=== PATIENT | female | born 1960 | race Caucasian/White ===

== ENCOUNTER 2020-05-04 05:12 | Observation (INO) | payer MEDICAID ==
[2020-05-04] MEDS ORDERED: BABY ASPIRIN 81 MG CHEW PO ONE (05:37)
[2020-05-04 06:18] LABS: Absolute Neutrophil Ct (ANC) 3.64 (1.4-6.9); BASOPHIL % 0.6 % (0.0-0.4); Basophil (Absolute #) 0.04 (0-0.4); Eosinophil % 1.7 % (0.00-5.0); Eosinophil (Absolute #) 0.11 (0-0.5); Hematocrit 28.1 % (35-47); Lymphocytes % 33.4 % (24.0-44.0); Mean Cell Volume 79.2 fl (78-100); Mean Corpuscular Hemoglobin 22.5 pg (26-32); Mean Corpuscular Hgb Concent. 28.5 g/dl (32-36); Monocytes % 6.4 % (0.0-12.0); Neutrophil % 57.9 % (36.0-66.0); Platelet Count 158 K/mm3 (150-450); Red Blood Count 3.55 M/mm3 (4.1-5.4); Red Cell Distribution Width 20.3 % (11.5-14.0); White Blood Count 6.3 K/mm3 (4.0-10.5)
[2020-05-04 06:32] LABS: ALBUMIN 4.1 g/dL (3.5-5.0); ALKALINE PHOSPHATASE 144 U/L (38-126); ANION GAP 13.1 MEQ/L (5-15); BLOOD UREA NITROGEN 15 mg/dL (7-17); CHLORIDE 105 mmol/L (98-107); Calcium 8.8 mg/dL (8.4-10.2); Carbon Dioxide 23 mmol/L (22-30); Creatinine 1 0.84 mg/dL (0.52-1.04); EST GLOMERULAR FILTRATION RATE > 60.0 ML/MIN; Glucose 130 mg/dL (74-106); MAGNESIUM 2.1 mg/dL (1.6-2.3); Potassium 3.5 mmol/L (3.5-5.1); SGOT/AST 81 U/L (14-36); SGPT/ALT 41 U/L (0-35); SODIUM 137 mmol/L (137-145); Total Protein 7.3 g/dL (6.3-8.2)
[2020-05-04] MEDS ORDERED: MORPHINE SULFATE 4 MG INJ IV ONE (06:34)
[2020-05-04] MEDS ORDERED: MORPHINE SULFATE 4 MG INJ ONE (06:36)
[2020-05-04 06:40] LABS: INFLUENZA A NEGATIVE (NEGATIVE); INFLUENZA B NEGATIVE (NEGATIVE); RESPIRATORY SYNCTIAL VIRUS NEGATIVE (Negative)
--- NOTE | 2020-05-04 06:45 | ERPHSYRPT ---
- History of Present Illness Source: patient, EMS Exam Limitations: no limitations Patient Subjective Stated Complaint: "My chest hurts and I can't breathe." Triage Nursing Assessment: Pt presented alert et oriented x3 answering questions appropriately. Pt presented in obvious distress of breathing with noted 4 words dyspnea. pt reported recently finishing chemotherapy for lung cancer. Pt reported right sided chest pain x4 days with acute increase in pain this morning. Pt denied headache, dizziness, visual/auditory changes. Neck supple non-tender without lymphadenopathy. Symmetrical chest expansion. heart tones regular/clear S2 S2. Lungs with restricted airflow throughout and diffuse fine crackles in the bilateral bases. Abdomen obese non-tender with bowel sounds present in all quadrants. Timing/Duration: day(s) (4), gradual onset, worse Activities at Onset: rest Severity of Dyspnea-Max: severe Severity of Dyspnea-Current: moderate Modifying Factors: Improves With: albuterol nebulizer, coughing, deep breath, oxygen Associated Symptoms: cough, chest pain/discomfort, fever, wheezing, heaviness, productive cough Hx Tetanus, Diphtheria Vaccination/Date Given: Yes Hx Influenza Vaccination/Date Given: Yes Hx Pneumococcal Vaccination/Date Given: Yes <GLADYS KEYES - Last Filed: 05/04/20 07:12> <HARRIETT FENTON - Last Filed: 05/04/20 08:17> - History of Present Illness Time Seen by Provider: 05/04/20 05:16 Physician History: 60 years old female with history of hypertension, hyperlipidemia, lung cancer currently on chemotherapy presented in the ER with chief complaint of increasing shortness of breath and cough productive of yellow-green sputum, moderate in amount associated with fever off and on for the last 3 days with a T-max of 103. Patient has taken Tylenol lost night and currently afebrile. Complaining of generalized chest soreness more pain in the right lower chest especially with deep breathing. She is given DuoNeb and Solu-Medrol by EMS in route to ER and is feeling better now but still have dyspnea. (GLADYS KEYES) Allergies/Adverse Reactions: No Known Drug Allergies Allergy (Unverified 05/04/20 05:14) Home Medications: Budesonide/Formoterol Fumarate [Budesonide-Formoterol 80-4.5] 2 puff PO BID 05/04/20 [History] Gabapentin 1 cap PO TID 05/04/20 [History] Metoprolol Succinate 1 tab PO DAILY 05/04/20 [History] Omeprazole 1 cap PO DAILY 05/04/20 [History] Venlafaxine HCl ER 75 mg [Effexor XR 75 MG] 3 cap PO DAILY 05/04/20 [History] Travel Risk - International Travel Have you traveled outside of the country in past 3 weeks: No - Coronavirus Screening Are you exhibiting any of the following symptoms?: Yes Symptoms: Cough: New Onset, Shortness of Breath Close contact with a COVID-19 positive Pt in past 14-21 Days: No <GLADYS KEYES - Last Filed: 05/04/20 07:12> - Review of Systems Constitutional: Fever, Chills, Fatigue, Weakness Eyes: No Symptoms Ears, Nose, & Throat: No Symptoms Respiratory: Cough, Dyspnea, Dyspnea on Exertion (GAMA), Wheezing Cardiac: Chest Pain Abdominal/Gastrointestinal: Nausea Genitourinary Symptoms: Urinary Retention Musculoskeletal: Myalgias Skin: No Symptoms Neurological: No Symptoms Psychological: No Symptoms Endocrine: No Symptoms Hematologic/Lymphatic: No Symptoms Immunological/Allergic: No Symptoms <GLADYS KEYES - Last Filed: 05/04/20 07:12> - Past Medical History Pertinent Past Medical History: Yes Neurological History: Migraines, Seizures ENT History: No Pertinent History Cardiac History: High Cholesterol, Hypertension, Myocardial Infarction ([place]) Respiratory History: Asthma, COPD, Lung Cancer Endocrine Medical History: Diabetes Type I Musculoskeletal History: No Pertinent History GI Medical History: GERD History: Renal Disease Psycho-Social History: Depression Female Reproductive Disorders: Breast Cancer, Uterine Cancer - Past Surgical History Past Surgical History: Yes Neuro Surgical History: No Pertinent History Cardiac: Cardiac Catheterization Respiratory: No Pertinent History Gastrointestinal: Cholecystectomy Genitourinary: No Pertinent History Musculoskeletal: No Pertinent History Female Surgical History: Hysterectomy - Social History Smoking Status: Current some day smoker Exposure to second hand smoke: Yes Drug Use: none Patient Lives Alone: Yes <GLADYS KEYES - Last Filed: 05/04/20 07:12> - Physical Exam General Appearance: no apparent distress, alert Eye Exam: PERRL/EOMI, eyes nml inspection Ears, Nose, Throat Exam: hearing grossly normal, pharyngeal erythema Neck Exam: normal inspection, non-tender, supple Respiratory Exam: diminished breath sounds, crackles/rales, wheezing Cardiovascular/Chest Exam: normal heart sounds, regular rate/rhythm Abdominal/Gastrointestinal Exam: soft, normal bowel sounds, No tenderness Extremity Exam: non-tender Skin Exam: normal color SpO2 Interpretation: O2 applied SpO2: 98 O2 Delivery: Nasal Cannula <STEPHY,GLADYS - Last Filed: 05/04/20 07:12> - Physical Exam Respiratory Exam: rhonchi <HARRIETT FENTON - Last Filed: 05/04/20 08:17> - Nursing Vital Signs Nursing Vital Signs: Initial Vital Signs Temperature 98.1 F 05/04/20 05:12 Pulse Rate 92 H 05/04/20 05:12 Respiratory Rate 22 05/04/20 05:12 Blood Pressure 123/75 05/04/20 05:12 O2 Sat by Pulse Oximetry 99 05/04/20 05:12 Pain Scale Pain Intensity 4 - Course EKG Interpreted by Me: RATE (90), Sinus Rhythm, NORMAL AXIS, NORMAL INTERVALS, NORMAL QRS <STEPHY,GLADYS - Last Filed: 05/04/20 07:12> - Radiology Exams Chest X-ray Interpretation: Reviewed by me, Infiltrates (right lower lobe) <JOSSY,HARRIETT - Last Filed: 05/04/20 08:17> Ordered Tests: Active Orders 24 hr Category Date Time Status Kindergarten Tutor STAT Care 05/04/20 05:21 Active EKG-ER Only STAT Care 05/04/20 05:20 Active Fox [Catheter-Coeymans Fox] STAT Care 05/04/20 07:23 Active IV Insertion STAT Care 05/04/20 05:20 Active NPO (ED) STAT Care 05/04/20 05:20 Active CHEST 1 VIEW (PORTABLE) Stat Exams 05/04/20 05:21 Taken BLOOD CULTURE Stat Lab 05/04/20 06:12 Received CBC W DIFF Stat Lab 05/04/20 06:12 Completed CMP Stat Lab 05/04/20 06:12 Completed Lactic Acid Stat Lab 05/04/20 05:20 Completed MAGNESIUM Stat Lab 05/04/20 06:12 Completed NT PRO BNP Stat Lab 05/04/20 06:12 Completed TROPONIN Q3H Lab 05/04/20 06:12 Completed TROPONIN Q3H Lab 05/04/20 08:30 Ordered TROPONIN Q3H Lab 05/04/20 11:30 Ordered TROPONIN Q3H Lab 05/04/20 14:30 Ordered TROPONIN Q3H Lab 05/04/20 17:30 Ordered UA W/RFX UR CULTURE Stat Lab 05/04/20 07:23 Completed Medication Summary Discontinued Medications Generic Name Dose Route Start Last Admin Trade Name Suyapa PRN Reason Stop Dose Admin Aspirin 324 mg 05/04/20 10:00 05/04/20 05:38 Ecotrin 81 Mg PO 06/03/20 09:59 Not Given DAILY KAROL Aspirin 324 mg 05/04/20 05:37 05/04/20 05:38 Baby Aspirin 81 Mg Chew PO 05/04/20 05:38 324 mg STAT ONE Administration Fentanyl Citrate 50 mcg 05/04/20 08:02 Sublimaze 100 Mcg/2 Ml IV 05/04/20 08:03 STAT ONE Azithromycin 500 mg in 250 mls @ 250 mls/hr 05/04/20 06:46 05/04/20 07:20 Zithromax 500 Mg/ 250 Ml Nacl Premix IV 05/04/20 07:45 250 mls/hr STAT STA 250 mls/hr Administration Ceftriaxone Sodium/Dextrose 2 g in 50 mls @ 100 mls/hr 05/04/20 06:46 05/04/20 07:19 Rocephin 2 Gm-D5w 50ml Bag IV 05/04/20 07:15 100 mls/hr STAT STA 100 mls/hr Administration Azithromycin Confirm 05/04/20 07:18 Zithromax 500 Mg/ 250 Ml Nacl Premix Administered 05/04/20 07:19 Dose 500 mg in 250 mls @ ud IV .STK-MED ONE Ceftriaxone Sodium/Dextrose Confirm 05/04/20 07:18 Rocephin 2 Gm-D5w 50ml Bag Administered 05/04/20 07:19 Dose 2 g in 50 mls @ ud IV .STK-MED ONE Lorazepam 1 mg 05/04/20 08:09 Ativan 2 Mg/1 Ml Vial IV 05/04/20 08:10 STAT ONE Morphine Sulfate 4 mg 05/04/20 06:34 05/04/20 06:36 Morphine Sulfate 4 Mg Inj IV 05/04/20 06:35 4 mg STAT ONE Administration Morphine Sulfate Confirm 05/04/20 06:36 Morphine Sulfate 4 Mg Inj Administered 05/04/20 06:37 Dose 4 mg .ROUTE .STK-MED ONE Lab/Rad Data: Laboratory Result Diagrams 05/04/20 06:12 05/04/20 06:12 Laboratory Results 05/04/20 05/04/20 05/04/20 Range/Units 07:23 06:12 06:12 WBC (4.0-10.5) K/mm3 RBC (4.1-5.4) M/mm3 Hgb (12.0-16.0) gm/dl Hct (35-47) % MCV (78-100) fl MCH (26-32) pg MCHC (32-36) g/dl RDW (11.5-14.0) % Plt Count (150-450) K/mm3 MPV (7.5-11.0) fl Gran % (36.0-66.0) % Eos # (Auto) (0-0.5) Absolute Lymphs (auto) (1.0-4.6) Absolute Monos (auto) (0.0-1.3) Lymphocytes % (24.0-44.0) % Monocytes % (0.0-12.0) % Eosinophils % (0.00-5.0) % Basophils % (0.0-0.4) % Absolute Granulocytes (1.4-6.9) Basophils # (0-0.4) Sodium 137 (137-145) mmol/L Potassium 3.5 (3.5-5.1) mmol/L Chloride 105 (98-107) mmol/L Carbon Dioxide 23 (22-30) mmol/L Anion Gap 13.1 (5-15) MEQ/L BUN 15 (7-17) mg/dL Creatinine 0.84 (0.52-1.04) mg/dL Estimated GFR > 60.0 ML/MIN Glucose 130 H (74-106) mg/dL Lactic Acid (0.4-2.0) Calcium 8.8 (8.4-10.2) mg/dL Magnesium 2.1 (1.6-2.3) mg/dL Total Bilirubin 0.30 (0.2-1.3) mg/dL AST 81 H (14-36) U/L ALT 41 H (0-35) U/L Alkaline Phosphatase 144 H (38-126) U/L Troponin I < 0.012 (0.000-0.034) ng/mL NT-Pro-B Natriuret Pep 43.6 (0-900) pg/mL Serum Total Protein 7.3 (6.3-8.2) g/dL Albumin 4.1 (3.5-5.0) g/dL Urine Color STRAW (YELLOW) Urine Appearance CLEAR (CLEAR) Urine pH 6.0 (5-6) Ur Specific Golden 1.008 (1.005-1.025) Urine Protein NEGATIVE (Negative) Urine Ketones NEGATIVE (NEGATIVE) Urine Blood NEGATIVE (0-5) Mina/ul Urine Nitrite NEGATIVE (NEGATIVE) Urine Bilirubin NEGATIVE (NEGATIVE) Urine Urobilinogen NEGATIVE (0-1) mg/dL Ur Leukocyte Esterase NEGATIVE (NEGATIVE) Urine WBC (Auto) NONE (0-5) /HPF Urine RBC (Auto) NONE (0-2) /HPF U Epithel Cells (Auto) NONE (FEW) /HPF Urine Bacteria (Auto) NONE (NEGATIVE) /HPF Urine Culture Reflexed ORDERED SEPARATELY (NO) Urine Glucose NEGATIVE (NEGATIVE) mg/dL Influenza Type A Ag (NEGATIVE) Influenza Type B Ag (NEGATIVE) RSV (PCR) (Negative) 05/04/20 05/04/20 05/04/20 Range/Units 06:12 06:10 05:20 WBC 6.3 (4.0-10.5) K/mm3 RBC 3.55 L (4.1-5.4) M/mm3 Hgb 8.0 L (12.0-16.0) gm/dl Hct 28.1 L (35-47) % MCV 79.2 (78-100) fl MCH 22.5 L (26-32) pg MCHC 28.5 L (32-36) g/dl RDW 20.3 H (11.5-14.0) % Plt Count 158 (150-450) K/mm3 MPV 10.0 (7.5-11.0) fl Gran % 57.9 (36.0-66.0) % Eos # (Auto) 0.11 (0-0.5) Absolute Lymphs (auto) 2.10 (1.0-4.6) Absolute Monos (auto) 0.40 (0.0-1.3) Lymphocytes % 33.4 (24.0-44.0) % Monocytes % 6.4 (0.0-12.0) % Eosinophils % 1.7 (0.00-5.0) % Basophils % 0.6 (0.0-0.4) % Absolute Granulocytes 3.64 (1.4-6.9) Basophils # 0.04 (0-0.4) Sodium (137-145) mmol/L Potassium (3.5-5.1) mmol/L Chloride (98-107) mmol/L Carbon Dioxide (22-30) mmol/L Anion Gap (5-15) MEQ/L BUN (7-17) mg/dL Creatinine (0.52-1.04) mg/dL Estimated GFR ML/MIN Glucose (74-106) mg/dL Lactic Acid 1.3 (0.4-2.0) Calcium (8.4-10.2) mg/dL Magnesium (1.6-2.3) mg/dL Total Bilirubin (0.2-1.3) mg/dL AST (14-36) U/L ALT (0-35) U/L Alkaline Phosphatase (38-126) U/L Troponin I (0.000-0.034) ng/mL NT-Pro-B Natriuret Pep (0-900) pg/mL Serum Total Protein (6.3-8.2) g/dL Albumin (3.5-5.0) g/dL Urine Color (YELLOW) Urine Appearance (CLEAR) Urine pH (5-6) Ur Specific Golden (1.005-1.025) Urine Protein (Negative) Urine Ketones (NEGATIVE) Urine Blood (0-5) Mina/ul Urine Nitrite (NEGATIVE) Urine Bilirubin (NEGATIVE) Urine Urobilinogen (0-1) mg/dL Ur Leukocyte Esterase (NEGATIVE) Urine WBC (Auto) (0-5) /HPF Urine RBC (Auto) (0-2) /HPF U Epithel Cells (Auto) (FEW) /HPF Urine Bacteria (Auto) (NEGATIVE) /HPF Urine Culture Reflexed (NO) Urine Glucose (NEGATIVE) mg/dL Influenza Type A Ag NEGATIVE (NEGATIVE) Influenza Type B Ag NEGATIVE (NEGATIVE) RSV (PCR) NEGATIVE (Negative) - Progress Progress: unchanged Air Movement: fair Blood Culture(s) Obtained: Yes Antibiotics given: Yes Discussed with : Kim Will see patient in: hospital (observation) Counseled pt/family regarding: lab results, diagnosis, need for follow-up, rad results, smoking cessation <HARRIETT FENTON - Last Filed: 05/04/20 08:17> <GLADYS KEYES - Last Filed: 05/04/20 07:12> - Departure Departure Disposition: Observation Critical Care Time: Yes Critical Care Time(excluding separately billable procedures): Critical 30-74 mins <HARRIETT FENTON - Last Filed: 05/04/20 08:17> - Departure Clinical Impression: Pneumonia of right lung due to infectious organism Qualifiers: Lung location: lower lobe of lung Qualified Code(s): J18.9 - Pneumonia, unspecified organism Breast cancer in female Qualifiers: Breast location: unspecified site of breast Estrogen receptor status: unspecified Laterality: right Qualified Code(s): C50.911 - Malignant neoplasm of unspecified site of right female breast Condition: Fair Referrals: HARRIETT FENTON MD [ACTIVE STAFF] -
[2020-05-04] MEDS ORDERED: Zithromax 500 MG/ 250 ML NaCl Premix 500 MG/250 ML IVPB IV STA (06:46)
[2020-05-04] MEDS ORDERED: ROCEPHIN 2 Gm-D5w 50ML BAG** 2 G/50 ML IVPB IV STA (06:46)
[2020-05-04 07:00] LABS: NT PRO BNP 43.6 pg/mL (0-900)
[2020-05-04] MEDS ORDERED: ROCEPHIN 2 Gm-D5w 50ML BAG** 2 G/50 ML IVPB IV ONE (07:18)
[2020-05-04] MEDS ORDERED: Zithromax 500 MG/ 250 ML NaCl Premix 500 MG/250 ML IVPB IV ONE (07:18)
[2020-05-04] MEDS ORDERED: SUBLIMAZE 100 MCG/2 ML IV ONE (08:02)
[2020-05-04 08:06] LABS: Appearance CLEAR (CLEAR); Bilirubin NEGATIVE (NEGATIVE); Blood NEGATIVE Ery/ul (0-5); Glucose NEGATIVE (NEGATIVE); Ketones NEGATIVE (NEGATIVE); Leukocyte Esterase NEGATIVE (NEGATIVE); Nitrite NEGATIVE (NEGATIVE); Protein,Urine Dip NEGATIVE (Negative); Specific Gravity 1.008 (1.005-1.025); Urobilinogen NEGATIVE mg/dL (0-1)
[2020-05-04] MEDS ORDERED: Ativan 2 MG/1 ML VIAL IV ONE (08:09)
[2020-05-04] MEDS ORDERED: SUBLIMAZE 100 MCG/2 ML ONE (08:11)
[2020-05-04] MEDS ORDERED: Ativan 2 MG/1 ML VIAL ONE (08:16)
[2020-05-04] MEDS ORDERED: ECOTRIN 81 MG PO SCH (10:00)
[2020-05-04] MEDS ORDERED: PROTONIX 40 MG IV IV SCH (10:04)
[2020-05-04] MEDS ORDERED: TYLENOL 325 MG PO PRN (10:04)
[2020-05-04 10:05] LABS: Slide Review 1 YES
--- NOTE | 2020-05-04 10:28 | PCM.HP ---
History of Present Illness - Chief Complaint Chief Complaint: shortness of breath for 2-3 days, History of Present Illness: is a 60 year old female. with history of hypertension, hyperlipidemia, lung cancer currently on chemotherapy presented in the ER with chief complaint of increasing shortness of breath and cough productive of yellow-green sputum, moderate in amount associated with fever off and on for the last 3 days with a T-max of 103. Patient has taken Tylenol lost night and currently afebrile. Complaining of generalized chest soreness more pain in the right lower chest especially with deep breathing. She is given DuoNeb and Solu-Medrol by EMS in route to ER and is feeling better now but still have dyspnea. - Review of Systems Constitutional: No Fever, No Chills Eyes: No Symptoms Ears, Nose, & Throat: No Symptoms Respiratory: Cough, Orthopnea, Short Of Breath Cardiac: No Chest Pain, No Edema, No Syncope Abdominal/Gastrointestinal: Abdominal Pain, No Nausea, No Vomiting, No Diarrhea Genitourinary Symptoms: No Dysuria Musculoskeletal: No Back Pain, No Neck Pain Skin: No Rash Neurological: No Dizziness, No Focal Weakness, No Sensory Changes Psychological: No Symptoms Endocrine: No Symptoms Hematologic/Lymphatic: No Symptoms Immunological/Allergic: No Symptoms Medications & Allergies Home Medications: Home Medication List Budesonide/Formoterol Fumarate [Budesonide-Formoterol 80-4.5] 2 puff PO BID 05/04/20 [History Confirmed 05/04/20] Gabapentin 1 cap PO TID 05/04/20 [History Confirmed 05/04/20] Metoprolol Succinate 1 tab PO DAILY 05/04/20 [History Confirmed 05/04/20] Omeprazole 1 cap PO DAILY 05/04/20 [History Confirmed 05/04/20] Venlafaxine HCl ER 75 mg [Effexor XR 75 MG] 3 cap PO DAILY 05/04/20 [History Confirmed 05/04/20] Allergies/Adverse Reactions: Allergies Allergy/AdvReac Type Severity Reaction Status Date / Time No Known Drug Allergies Allergy Unverified 05/04/20 05:14 - Past Medical History Past Medical History: Yes Neurological History: Migraines, Seizures ENT History: No Pertinent History Cardiac History: High Cholesterol, Hypertension, Myocardial Infarction ([place]) Respiratory History: Asthma, COPD, Lung Cancer Endocrine Medical History: Diabetes Type I Musculoskelatal History: No Pertinent History GI Medical History: GERD History: Renal Disease Pyscho-Social History: Depression Reproductive Disorders: Breast Cancer, Uterine Cancer - Past Surgical History Past Surgical History: Yes Neuro Surgical History: No Pertinent History Cardiac History: Cardiac Catheterization Respiratory Surgery: No Pertinent History GI Surgical History: Cholecystectomy Genitourinary Surgical Hx: No Pertinent History Musculskeletal Surgical Hx: No Pertinent History Female Surgical History: Hysterectomy - Social History Smoking Status: Current some day smoker Exposure to second hand smoke: Yes Alcohol: Occasionally Drug Use: none - Physical Exam Vital Signs: Vital Signs - 24 hr Temp Pulse Resp BP Pulse Ox 05/04/20 08:24 102 H 18 139/96 99 05/04/20 07:24 101 H 25 H 135/92 99 05/04/20 07:12 98 05/04/20 06:12 97 H 14 131/77 98 05/04/20 05:12 98.1 F 92 H 20 123/75 100 General Appearance: no apparent distress, alert Neurologic Exam: alert, oriented x 3, cooperative, normal mood/affect, nml cerebellar function, nml station & gait, sensation nml, No motor deficits Eye Exam: PERRL/EOMI, eyes nml inspection Ears, Nose, Throat Exam: normal ENT inspection, TMs normal, pharynx normal, moist mucous membranes Neck Exam: normal inspection, non-tender, supple, full range of motion Respiratory Exam: diminished breath sounds, crackles/rales, rhonchi, wheezing, No respiratory distress Cardiovascular Exam: regular rate/rhythm, normal heart sounds, normal peripheral pulses Gastrointestinal/Abdomen Exam: soft, normal bowel sounds, No tenderness, No mass Back Exam: normal inspection, normal range of motion, No CVA tenderness, No vertebral tenderness Extremity Exam: normal inspection, normal range of motion, pelvis stable Skin Exam: normal color, warm, dry, No rash Lymphatic Exam: No adenopathy Results - Labs Lab/Micro Results: Lab Results-Last 24 Hours 05/04/20 05/04/20 05/04/20 Range/Units 05:20 06:10 06:12 WBC 6.3 (4.0-10.5) K/mm3 RBC 3.55 L (4.1-5.4) M/mm3 Hgb 8.0 L (12.0-16.0) gm/dl Hct 28.1 L (35-47) % MCV 79.2 (78-100) fl MCH 22.5 L (26-32) pg MCHC 28.5 L (32-36) g/dl RDW 20.3 H (11.5-14.0) % Plt Count 158 (150-450) K/mm3 MPV 10.0 (7.5-11.0) fl Gran % 57.9 (36.0-66.0) % Eos # (Auto) 0.11 (0-0.5) Absolute Lymphs (auto) 2.10 (1.0-4.6) Absolute Monos (auto) 0.40 (0.0-1.3) Lymphocytes % 33.4 (24.0-44.0) % Monocytes % 6.4 (0.0-12.0) % Eosinophils % 1.7 (0.00-5.0) % Basophils % 0.6 (0.0-0.4) % Absolute Granulocytes 3.64 (1.4-6.9) Basophils # 0.04 (0-0.4) Sodium (137-145) mmol/L Potassium (3.5-5.1) mmol/L Chloride (98-107) mmol/L Carbon Dioxide (22-30) mmol/L Anion Gap (5-15) MEQ/L BUN (7-17) mg/dL Creatinine (0.52-1.04) mg/dL Estimated GFR ML/MIN Glucose (74-106) mg/dL Lactic Acid 1.3 (0.4-2.0) Calcium (8.4-10.2) mg/dL Magnesium (1.6-2.3) mg/dL Total Bilirubin (0.2-1.3) mg/dL AST (14-36) U/L ALT (0-35) U/L Alkaline Phosphatase (38-126) U/L Troponin I (0.000-0.034) ng/mL NT-Pro-B Natriuret Pep (0-900) pg/mL Serum Total Protein (6.3-8.2) g/dL Albumin (3.5-5.0) g/dL Urine Color (YELLOW) Urine Appearance (CLEAR) Urine pH (5-6) Ur Specific [place] (1.005-1.025) Urine Protein (Negative) Urine Ketones (NEGATIVE) Urine Blood (0-5) Mina/ul Urine Nitrite (NEGATIVE) Urine Bilirubin (NEGATIVE) Urine Urobilinogen (0-1) mg/dL Ur Leukocyte Esterase (NEGATIVE) Urine WBC (Auto) (0-5) /HPF Urine RBC (Auto) (0-2) /HPF U Epithel Cells (Auto) (FEW) /HPF Urine Bacteria (Auto) (NEGATIVE) /HPF Urine Culture Reflexed (NO) Urine Glucose (NEGATIVE) mg/dL Influenza Type A Ag NEGATIVE (NEGATIVE) Influenza Type B Ag NEGATIVE (NEGATIVE) RSV (PCR) NEGATIVE (Negative) SARS-CoV-2 (PCR) (NEGATIVE) Slides for Path Review YES 05/04/20 05/04/20 05/04/20 Range/Units 06:12 06:12 07:23 WBC (4.0-10.5) K/mm3 RBC (4.1-5.4) M/mm3 Hgb (12.0-16.0) gm/dl Hct (35-47) % MCV (78-100) fl MCH (26-32) pg MCHC (32-36) g/dl RDW (11.5-14.0) % Plt Count (150-450) K/mm3 MPV (7.5-11.0) fl Gran % (36.0-66.0) % Eos # (Auto) (0-0.5) Absolute Lymphs (auto) (1.0-4.6) Absolute Monos (auto) (0.0-1.3) Lymphocytes % (24.0-44.0) % Monocytes % (0.0-12.0) % Eosinophils % (0.00-5.0) % Basophils % (0.0-0.4) % Absolute Granulocytes (1.4-6.9) Basophils # (0-0.4) Sodium 137 (137-145) mmol/L Potassium 3.5 (3.5-5.1) mmol/L Chloride 105 (98-107) mmol/L Carbon Dioxide 23 (22-30) mmol/L Anion Gap 13.1 (5-15) MEQ/L BUN 15 (7-17) mg/dL Creatinine 0.84 (0.52-1.04) mg/dL Estimated GFR > 60.0 ML/MIN Glucose 130 H (74-106) mg/dL Lactic Acid (0.4-2.0) Calcium 8.8 (8.4-10.2) mg/dL Magnesium 2.1 (1.6-2.3) mg/dL Total Bilirubin 0.30 (0.2-1.3) mg/dL AST 81 H (14-36) U/L ALT 41 H (0-35) U/L Alkaline Phosphatase 144 H (38-126) U/L Troponin I < 0.012 (0.000-0.034) ng/mL NT-Pro-B Natriuret Pep 43.6 (0-900) pg/mL Serum Total Protein 7.3 (6.3-8.2) g/dL Albumin 4.1 (3.5-5.0) g/dL Urine Color STRAW (YELLOW) Urine Appearance CLEAR (CLEAR) Urine pH 6.0 (5-6) Ur Specific [place] 1.008 (1.005-1.025) Urine Protein NEGATIVE (Negative) Urine Ketones NEGATIVE (NEGATIVE) Urine Blood NEGATIVE (0-5) Mina/ul Urine Nitrite NEGATIVE (NEGATIVE) Urine Bilirubin NEGATIVE (NEGATIVE) Urine Urobilinogen NEGATIVE (0-1) mg/dL Ur Leukocyte Esterase NEGATIVE (NEGATIVE) Urine WBC (Auto) NONE (0-5) /HPF Urine RBC (Auto) NONE (0-2) /HPF U Epithel Cells (Auto) NONE (FEW) /HPF Urine Bacteria (Auto) NONE (NEGATIVE) /HPF Urine Culture Reflexed ORDERED SEPARATELY (NO) Urine Glucose NEGATIVE (NEGATIVE) mg/dL Influenza Type A Ag (NEGATIVE) Influenza Type B Ag (NEGATIVE) RSV (PCR) (Negative) SARS-CoV-2 (PCR) (NEGATIVE) Slides for Path Review 05/04/20 05/04/20 Range/Units 08:44 Unknown WBC (4.0-10.5) K/mm3 RBC (4.1-5.4) M/mm3 Hgb (12.0-16.0) gm/dl Hct (35-47) % MCV (78-100) fl MCH (26-32) pg MCHC (32-36) g/dl RDW (11.5-14.0) % Plt Count (150-450) K/mm3 MPV (7.5-11.0) fl Gran % (36.0-66.0) % Eos # (Auto) (0-0.5) Absolute Lymphs (auto) (1.0-4.6) Absolute Monos (auto) (0.0-1.3) Lymphocytes % (24.0-44.0) % Monocytes % (0.0-12.0) % Eosinophils % (0.00-5.0) % Basophils % (0.0-0.4) % Absolute Granulocytes (1.4-6.9) Basophils # (0-0.4) Sodium (137-145) mmol/L Potassium (3.5-5.1) mmol/L Chloride (98-107) mmol/L Carbon Dioxide (22-30) mmol/L Anion Gap (5-15) MEQ/L BUN (7-17) mg/dL Creatinine (0.52-1.04) mg/dL Estimated GFR ML/MIN Glucose (74-106) mg/dL Lactic Acid (0.4-2.0) Calcium (8.4-10.2) mg/dL Magnesium (1.6-2.3) mg/dL Total Bilirubin (0.2-1.3) mg/dL AST (14-36) U/L ALT (0-35) U/L Alkaline Phosphatase (38-126) U/L Troponin I < 0.012 (0.000-0.034) ng/mL NT-Pro-B Natriuret Pep (0-900) pg/mL Serum Total Protein (6.3-8.2) g/dL Albumin (3.5-5.0) g/dL Urine Color (YELLOW) Urine Appearance (CLEAR) Urine pH (5-6) Ur Specific [place] (1.005-1.025) Urine Protein (Negative) Urine Ketones (NEGATIVE) Urine Blood (0-5) Mina/ul Urine Nitrite (NEGATIVE) Urine Bilirubin (NEGATIVE) Urine Urobilinogen (0-1) mg/dL Ur Leukocyte Esterase (NEGATIVE) Urine WBC (Auto) (0-5) /HPF Urine RBC (Auto) (0-2) /HPF U Epithel Cells (Auto) (FEW) /HPF Urine Bacteria (Auto) (NEGATIVE) /HPF Urine Culture Reflexed (NO) Urine Glucose (NEGATIVE) mg/dL Influenza Type A Ag (NEGATIVE) Influenza Type B Ag (NEGATIVE) RSV (PCR) (Negative) SARS-CoV-2 (PCR) NEGATIVE (NEGATIVE) Slides for Path Review - Radiology Impressions Radiology Exams & Impressions: Radiology Procedures Category Date Time Status CHEST 1 VIEW (PORTABLE) Stat Exams 05/04/20 05:21 Taken - Other Procedures and Tests Respiratory Therapy 05/04/20 10:04 Oxygen Nasal Cannula 2 lpm Respiratory Therapy Consult ROUTINE Assessment/Plan (1) Pneumonia of right lung due to infectious organism Current Visit: Yes Status: Acute Qualifiers: Lung location: lower lobe of lung Qualified Code(s): J18.9 - Pneumonia, unspecified organism Assessment & Plan: Allergies Allergy/AdvReac Type Severity Reaction Status Date / Time No Known Drug Allergies Allergy Unverified 05/04/20 05:14 Vital Signs (Last 24 hours) Temp Pulse Resp BP Pulse Ox 05/04/20 08:24 102 H 18 139/96 99 05/04/20 07:24 101 H 25 H 135/92 99 05/04/20 07:12 98 05/04/20 06:12 97 H 14 131/77 98 05/04/20 05:12 98.1 F 92 H 20 123/75 100 Home Medications Medication Instructions Recorded Confirmed Last Taken Type Budesonide/Formoterol Fumarate 2 puff PO BID 05/04/20 05/04/20 Unknown History [Budesonide-Formoterol 80-4.5] Gabapentin 1 cap PO TID 05/04/20 05/04/20 Unknown History Metoprolol Succinate 1 tab PO DAILY 05/04/20 05/04/20 Unknown History Omeprazole 1 cap PO DAILY 05/04/20 05/04/20 Unknown History Venlafaxine HCl ER 75 mg 3 cap PO DAILY 05/04/20 05/04/20 Unknown History [Effexor XR 75 MG] Current Medications Generic Name Dose Route Start Last Admin Trade Name Freq PRN Reason Stop Dose Admin Acetaminophen 650 mg 05/04/20 10:04 Tylenol 325 Mg PO 06/03/20 10:03 Q4H PRN PRN PAIN AND/OR FEVER Famotidine 20 mg 05/04/20 10:04 Pepcid 20 Mg Vial IV 06/03/20 10:03 Q12HT KAROL Sodium Chloride 1,000 mls @ 100 mls/hr 05/04/20 10:04 Sodium Chloride 0.9% 1000 Ml IV 06/03/20 10:03 .Q10H KAROL Azithromycin 500 mg in 250 mls @ 250 mls/hr 05/05/20 10:00 Zithromax 500 Mg/ 250 Ml Nacl Premix IV 06/04/20 09:59 Q24H10 KAROL Ceftriaxone Sodium/Dextrose 1 g in 50 mls @ 100 mls/hr 05/05/20 10:00 Rocephin 1 Gm-D5w 50 Ml Bag IV 06/04/20 09:59 Q24H10 KAROL Morphine Sulfate 4 mg 05/04/20 10:23 Morphine Sulfate 4 Mg Inj IV 05/09/20 10:22 Q2H PRN PRN PAIN Pantoprazole Sodium 40 mg 05/04/20 10:04 Protonix 40 Mg Iv IV 06/03/20 10:03 Q24H10 KAROL Discontinued Medications Generic Name Dose Route Start Last Admin Trade Name Freq PRN Reason Stop Dose Admin Aspirin 324 mg 05/04/20 10:00 05/04/20 05:38 Ecotrin 81 Mg PO 06/03/20 09:59 Not Given DAILY KAROL Aspirin 324 mg 05/04/20 05:37 05/04/20 05:38 Baby Aspirin 81 Mg Chew PO 05/04/20 05:38 324 mg STAT ONE Administration Fentanyl Citrate 50 mcg 05/04/20 08:02 05/04/20 08:18 Sublimaze 100 Mcg/2 Ml IV 05/04/20 08:03 50 mcg STAT ONE Administration Fentanyl Citrate Confirm 05/04/20 08:11 Sublimaze 100 Mcg/2 Ml Administered 05/04/20 08:12 Dose 100 mcg .ROUTE .STK-MED ONE Azithromycin 500 mg in 250 mls @ 250 mls/hr 05/04/20 06:46 05/04/20 08:21 Zithromax 500 Mg/ 250 Ml Nacl Premix IV 05/04/20 07:45 Infused STAT STA Infusion Ceftriaxone Sodium/Dextrose 2 g in 50 mls @ 100 mls/hr 05/04/20 06:46 05/04/20 08:20 Rocephin 2 Gm-D5w 50ml Bag IV 05/04/20 07:15 Infused STAT STA Infusion Azithromycin Confirm 05/04/20 07:18 Zithromax 500 Mg/ 250 Ml Nacl Premix Administered 05/04/20 07:19 Dose 500 mg in 250 mls @ ud IV .STK-MED ONE Ceftriaxone Sodium/Dextrose Confirm 05/04/20 07:18 Rocephin 2 Gm-D5w 50ml Bag Administered 05/04/20 07:19 Dose 2 g in 50 mls @ ud IV .STK-MED ONE Lorazepam 1 mg 05/04/20 08:09 05/04/20 08:17 Ativan 2 Mg/1 Ml Vial IV 05/04/20 08:10 1 mg STAT ONE Administration Lorazepam Confirm 05/04/20 08:16 Ativan 2 Mg/1 Ml Vial Administered 05/04/20 08:17 Dose 2 mg .ROUTE .STK-MED ONE Morphine Sulfate 4 mg 05/04/20 06:34 05/04/20 06:36 Morphine Sulfate 4 Mg Inj IV 05/04/20 06:35 4 mg STAT ONE Administration Morphine Sulfate Confirm 05/04/20 06:36 Morphine Sulfate 4 Mg Inj Administered 05/04/20 06:37 Dose 4 mg .ROUTE .STK-MED ONE Intake & Output (Last 24 hours) 05/01/20 05/02/20 05/03/20 05/04/20 11:59 11:59 11:59 11:59 Output Total 200 Balance -200 Weight 83.915 kg Microbiology Results (Last 24 hours) 05/04/20 07:30 Catherized Urine Culture - Pending 05/04/20 06:12 Blood Blood Culture Gram Stain - Pending 05/04/20 06:12 Blood Blood Culture - Pending 05/04/20 06:12 Blood Blood Culture Gram Stain - Pending 05/04/20 06:12 Blood Blood Culture - Pending Laboratory Results (Last 24 hours) 05/04/20 05/04/20 05/04/20 Unknown 08:44 07:23 WBC RBC Hgb Hct MCV MCH MCHC RDW Plt Count MPV Gran % Eos # (Auto) Absolute Lymphs (auto) Absolute Monos (auto) Lymphocytes % Monocytes % Eosinophils % Basophils % Absolute Granulocytes Basophils # Sodium Potassium Chloride Carbon Dioxide Anion Gap BUN Creatinine Estimated GFR Glucose Lactic Acid Calcium Magnesium Total Bilirubin AST ALT Alkaline Phosphatase Troponin I < 0.012 NT-Pro-B Natriuret Pep Serum Total Protein Albumin Urine Color STRAW Urine Appearance CLEAR Urine pH 6.0 Ur Specific [place] 1.008 Urine Protein NEGATIVE Urine Ketones NEGATIVE Urine Blood NEGATIVE Urine Nitrite NEGATIVE Urine Bilirubin NEGATIVE Urine Urobilinogen NEGATIVE Ur Leukocyte Esterase NEGATIVE Urine WBC (Auto) NONE Urine RBC (Auto) NONE U Epithel Cells (Auto) NONE Urine Bacteria (Auto) NONE Urine Culture Reflexed ORDERED SEPARATELY Urine Glucose NEGATIVE Influenza Type A Ag Influenza Type B Ag RSV (PCR) SARS-CoV-2 (PCR) NEGATIVE Slides for Path Review 05/04/20 05/04/20 05/04/20 06:12 06:12 06:12 WBC 6.3 RBC 3.55 L Hgb 8.0 L Hct 28.1 L MCV 79.2 MCH 22.5 L MCHC 28.5 L RDW 20.3 H Plt Count 158 MPV 10.0 Gran % 57.9 Eos # (Auto) 0.11 Absolute Lymphs (auto) 2.10 Absolute Monos (auto) 0.40 Lymphocytes % 33.4 Monocytes % 6.4 Eosinophils % 1.7 Basophils % 0.6 Absolute Granulocytes 3.64 Basophils # 0.04 Sodium 137 Potassium 3.5 Chloride 105 Carbon Dioxide 23 Anion Gap 13.1 BUN 15 Creatinine 0.84 Estimated GFR > 60.0 Glucose 130 H Lactic Acid Calcium 8.8 Magnesium 2.1 Total Bilirubin 0.30 AST 81 H ALT 41 H Alkaline Phosphatase 144 H Troponin I < 0.012 NT-Pro-B Natriuret Pep 43.6 Serum Total Protein 7.3 Albumin 4.1 Urine Color Urine Appearance Urine pH Ur Specific [place] Urine Protein Urine Ketones Urine Blood Urine Nitrite Urine Bilirubin Urine Urobilinogen Ur Leukocyte Esterase Urine WBC (Auto) Urine RBC (Auto) U Epithel Cells (Auto) Urine Bacteria (Auto) Urine Culture Reflexed Urine Glucose Influenza Type A Ag Influenza Type B Ag RSV (PCR) SARS-CoV-2 (PCR) Slides for Path Review YES 05/04/20 05/04/20 06:10 05:20 WBC RBC Hgb Hct MCV MCH MCHC RDW Plt Count MPV Gran % Eos # (Auto) Absolute Lymphs (auto) Absolute Monos (auto) Lymphocytes % Monocytes % Eosinophils % Basophils % Absolute Granulocytes Basophils # Sodium Potassium Chloride Carbon Dioxide Anion Gap BUN Creatinine Estimated GFR Glucose Lactic Acid 1.3 Calcium Magnesium Total Bilirubin AST ALT Alkaline Phosphatase Troponin I NT-Pro-B Natriuret Pep Serum Total Protein Albumin Urine Color Urine Appearance Urine pH Ur Specific [place] Urine Protein Urine Ketones Urine Blood Urine Nitrite Urine Bilirubin Urine Urobilinogen Ur Leukocyte Esterase Urine WBC (Auto) Urine RBC (Auto) U Epithel Cells (Auto) Urine Bacteria (Auto) Urine Culture Reflexed Urine Glucose Influenza Type A Ag NEGATIVE Influenza Type B Ag NEGATIVE RSV (PCR) NEGATIVE SARS-CoV-2 (PCR) Slides for Path Review Orders (Last 24 hours) Category Date Time Status Up Ad Sabrina ROUTINE Activity 05/04/20 10:04 Active Call Admit Doctor for Orders ON ADMISSION Care 05/04/20 10:04 Active Cinder Block Maker STAT Care 05/04/20 05:21 Completed Code Status Order ROUTINE Care 05/04/20 10:04 Active EKG-ER Only STAT Care 05/04/20 05:20 Completed Fox [Catheter-Arnot Fox] STAT Care 05/04/20 07:23 Active IV Care Q6H Care 05/04/20 10:04 Active IV Insertion STAT Care 05/04/20 05:20 Completed NPO (ED) STAT Care 05/04/20 05:[address] in Observation ROUTINE Care 05/04/20 10:04 Active Jorge Santos, Apply ROUTINE Care 05/04/20 10:04 Active Heart-Healthy Diet Diet 05/04/20 Lunch Active CHEST 1 VIEW (PORTABLE) Stat Exams 05/04/20 05:21 Taken BLOOD CULTURE Stat Lab 05/04/20 06:12 Received CBC W DIFF AM.LAB Lab 05/05/20 04:00 Ordered CBC W DIFF Stat Lab 05/04/20 06:12 Completed CMP AM.LAB Lab 05/05/20 04:00 Ordered CMP Stat Lab 05/04/20 06:12 Completed CULTURE,URINE Stat Lab 05/04/20 07:30 Received FLU/RSV Panel Stat Lab 05/04/20 06:10 Completed Lactic Acid Stat Lab 05/04/20 05:20 Completed MAGNESIUM Stat Lab 05/04/20 06:12 Completed NT PRO BNP Stat Lab 05/04/20 06:12 Completed TROPONIN Q3H Lab 05/04/20 06:12 Completed TROPONIN Q3H Lab 05/04/20 08:44 Completed TROPONIN Q3H Lab 05/04/20 11:30 Ordered TROPONIN Q3H Lab 05/04/20 14:30 Ordered TROPONIN Q3H Lab 05/04/20 17:30 Ordered UA W/RFX UR CULTURE Stat Lab 05/04/20 07:23 Completed Acetaminophen 325 mg [Tylenol 325 mg] Med 05/04/20 10:04 Active 650 mg PO Q4H PRN PRN Aspirin 81 gm Chew [Baby Aspirin 81 mg Chew] Med 05/04/20 05:37 Discontinued 324 mg PO STAT ONE Aspirin EC 81 mg [Ecotrin 81 mg] Med 05/04/20 10:00 Discontinued 324 mg PO DAILY Azithromycin 500 mg/250 ml [Zithromax 500 MG/ 250 ML Med 05/05/20 10:00 Active NaCl Premix] 500 mg in 250 ml IV Q24H10 Azithromycin 500 mg/250 ml [Zithromax 500 MG/ 250 ML Med 05/04/20 06:46 Discontinued NaCl Premix] 500 mg in 250 ml IV STAT Azithromycin 500 mg/250 ml [Zithromax 500 MG/ 250 ML Med 05/04/20 07:18 Discontinued NaCl Premix] 500 mg in 250 ml IV UD Ceftriaxone 1 GM/50 ML PREMIX* [ROCEPHIN 1 Gm-D5w 50 ml Med 05/05/20 10:00 Active Bag] 1 g in 50 ml IV Q24H10 Ceftriaxone 2 GM/50 ML PREMIX* [ROCEPHIN 2 Gm-D5w 50ML Med 05/04/20 06:46 Discontinued BAG] 2 g in 50 ml IV STAT Ceftriaxone 2 GM/50 ML PREMIX* [ROCEPHIN 2 Gm-D5w 50ML Med 05/04/20 07:18 Discontinued BAG] 2 g in 50 ml IV UD Famotidine 20 mg Vial [Pepcid 20 MG VIAL] Med 05/04/20 10:04 Active 20 mg IV Q12HT Fentanyl Citrate 100 Mcg/2 ml* [Sublimaze 100 Mcg/2 ml* Med 05/04/20 08:11 Discontinued ] 100 mcg .ROUTE .STK-MED ONE Fentanyl Citrate 100 Mcg/2 ml* [Sublimaze 100 Mcg/2 ml* Med 05/04/20 08:02 Discontinued ] 50 mcg IV STAT ONE Lorazepam 2 mg/1 ml [Ativan 2 MG/1 ML VIAL] Med 05/04/20 08:09 Discontinued 1 mg IV STAT ONE Lorazepam 2 mg/1 ml [Ativan 2 MG/1 ML VIAL] Med 05/04/20 08:16 Discontinued 2 mg .ROUTE .STK-MED ONE Morphine Sulfate 4 mg Inj Med 05/04/20 06:36 Discontinued 4 mg .ROUTE .STK-MED ONE Morphine Sulfate 4 mg Inj Med 05/04/20 10:23 Active 4 mg IV Q2H PRN PRN Morphine Sulfate 4 mg Inj Med 05/04/20 06:34 Discontinued 4 mg IV STAT ONE NaCl 0.9% 1000 ml [Sodium Chloride 0.9% 1000 ML] 1,000 Med 05/04/20 10:04 Active ml IV 100 mls/hr Pantoprazole 40 mg [Protonix 40 mg IV] Med 05/04/20 10:04 Active 40 mg IV Q24H10 Oxygen Nasal Cannula 2 lpm RT 05/04/20 10:04 Active Pulse Oximetry CONTINUOUS RT 05/04/20 10:04 Active Respiratory Therapy Consult ROUTINE RT 05/04/20 10:04 Active Transfer Order Routine Transfer 05/04/20 Completed Code(s): J18.9 - PNEUMONIA, UNSPECIFIED ORGANISM (2) Breast cancer in female Current Visit: Yes Status: Acute Qualifiers: Breast location: unspecified site of breast Estrogen receptor status: unspecified Laterality: right Qualified Code(s): C50.911 - Malignant neoplasm of unspecified site of right female breast Code(s): C50.919 - MALIGNANT NEOPLASM OF UNSP SITE OF UNSPECIFIED FEMALE BREAST
[2020-05-04] MEDS: MORPHINE SULFATE 4 MG INJ IV PRN ×5 (10:55→23:49)
[2020-05-04] MEDS: Pepcid 20 MG VIAL IV SCH ×2 (10:56→21:34)
[2020-05-04] MEDS ORDERED: PROVENTIL 2.5 MG/3 ML NEB IH PRN (11:15)
[2020-05-04] MEDS: Sodium Chloride 0.9% 1000 ML 1,000 ML IV SCH (12:06)
[2020-05-04] MEDS ORDERED: MEDICATION INTERVENTION MC SCH (13:30)
[2020-05-04] MEDS: Ativan 2 MG/1 ML VIAL IV PRN ×3 (13:40→22:19)
[2020-05-04] MEDS: THERAGRAN MULTIVITAMIN PO SCH (13:45)
[2020-05-04] MEDS: Effexor XR 75 MG PO SCH (13:46)
[2020-05-04] MEDS: Toprol Xl 50 MG PO SCH (13:46)
[2020-05-04] MEDS: Lasix 40 MG PO SCH (13:46)
[2020-05-04] MEDS: NEURONTIN 300 MG PO SCH ×2 (13:46→21:34)
[2020-05-04] MEDS: VITA-BEE WITH C PO SCH (13:46)
[2020-05-04] MEDS ORDERED: Nicoderm CQ 21 MG TOP SCH (15:45)
[2020-05-04] MEDS: PATIENT OWN MEDICATION IH SCH (20:04)
[2020-05-04] MEDS ORDERED: PATIENT OWN MEDICATION IH SCH (20:07)
--- NOTE | 2020-05-04 20:11 | XRAY ---
Indication: Short of breath. Current chemotherapy. Comparison: None Portable chest demonstrates hazy left base infiltrate versus atelectasis and tiny left upper lobe calcified granuloma. Remaining heart and lungs unremarkable. Bony thorax intact.
[2020-05-05 00:40] VITALS: PULSE 97
[2020-05-05 00:53] VITALS: BP 180/97
[2020-05-05] MEDS: MORPHINE SULFATE 4 MG INJ IV PRN (01:55)
[2020-05-05] MEDS: Ativan 2 MG/1 ML VIAL IV PRN ×2 (02:20→06:15)
[2020-05-05] MEDS ORDERED: Ativan 2 MG/1 ML VIAL IV ONE (03:21)
[2020-05-05] MEDS ORDERED: PATIENT OWN MEDICATION IH SCH (07:00)
[2020-05-05] MEDS: PATIENT OWN MEDICATION IH SCH (07:06)
[2020-05-05 07:10] VITALS: O2SAT 93
[2020-05-05] MEDS: Sodium Chloride 0.9% 1000 ML 1,000 ML IV SCH ×2 (07:36→07:37)
[2020-05-05] MEDS ORDERED: OXYCODONE-ACETAMINOPHEN 10-325 PO PRN (08:47)
[2020-05-05] MEDS ORDERED: NON-FORMULARY ITEM (Multivitamin [Multivitamin] 1 TAB) PO SCH (10:00)
[2020-05-05] MEDS ORDERED: NON-FORMULARY ITEM (Omeprazole [Omeprazole] 40 MG) PO SCH (10:00)
[2020-05-05] MEDS ORDERED: Zithromax 500 MG/ 250 ML NaCl Premix 500 MG/250 ML IVPB IV SCH (10:00)
[2020-05-05] MEDS ORDERED: VITAMIN B COMPLEX PO SCH (10:00)
[2020-05-05] MEDS ORDERED: Protonix 40MG Tablet PO SCH (10:00)
[2020-05-05] MEDS ORDERED: NON-FORMULARY ITEM (Budesonide/Formoterol Fumarate [Symbicort 80-4.5 Mcg Inhaler] 2 PUFFS) IH SCH (10:00)
[2020-05-05] MEDS ORDERED: ROCEPHIN 1 Gm-D5w 50 ml Bag** 1 G/50 ML IVPB IV SCH (10:00)
--- NOTE | 2020-05-05 10:09 | XRAY ---
Indication: Confusion. Head injury following fall. History of lung cancer. Multiple contiguous axial images obtained through the head without contrast. Comparison: None Age-appropriate global atrophy and minimal periventricular degenerative micro-ischemia bilaterally. No acute intracranial hemorrhage, abnormal extra-axial fluid collection, or mass effect. Fourth ventricle is midline without hydrocephalus. Bony calvarium intact. Visualized paranasal sinuses and mastoid air cells are clear. Impression: Normal aging brain including atrophy and degenerative micro-ischemia. No acute intracranial abnormalities.
--- NOTE | 2020-05-05 10:12 | XRAY ---
Indication: Upper abdomen pain following fall. History lung cancer. Multiple contiguous axial images obtained through the abdomen only without contrast as ordered. Comparison: None Lung bases demonstrates minimal bilateral atelectasis/scarring without infiltrate or effusion. Tiny 2 mm right middle lobe and 7 mm right lower lobe subpleural noncalcified indeterminant nodules. Heart is not enlarged. Noncontrasted stomach and visualized bowel loops appear nonobstructed. Large amount of fecal debris throughout the colon greatest in the right hemicolon. 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 No free fluid/air. Mild cirrhotic appearing liver. Spleen is enlarged measuring 14.5 cm. Patient reports appendectomy, cholecystectomy, and hysterectomy. Remaining spleen, adrenal glands, kidneys, and proximal ureters are unremarkable for noncontrast exam. Mild aortoiliac calcifications without AAA. Osseous structures demonstrates mild/moderate lower lumbar degenerative spondylosis and old nonunited left L2 transverse process fracture. Impression: 1. Right middle and right lower lobe indeterminate noncalcified micronodules in this patient with history of lung cancer. Outside comparison studies recommended if available. If not, CT chest recommended to establish baseline with follow-up per Fleischner guidelines. 2. Marked fecal stasis. 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 3. Splenomegaly, cirrhotic liver without ascites, and chronic bony findings.
[2020-05-05] MEDS: Lasix 40 MG PO SCH (11:29)
[2020-05-05] MEDS: Effexor XR 75 MG PO SCH (11:29)
[2020-05-05] MEDS: Pepcid 20 MG VIAL IV SCH (11:29)
[2020-05-05] MEDS: NEURONTIN 300 MG PO SCH (11:29)
[2020-05-05] MEDS: THERAGRAN MULTIVITAMIN PO SCH (11:30)
[2020-05-05] MEDS: Toprol Xl 50 MG PO SCH (11:30)
[2020-05-05] MEDS: VITA-BEE WITH C PO SCH (11:30)
--- NOTE | 2020-05-05 11:30 | PCM.DS ---
Discharge Summary Date of Admission: 05/04/20 09:37 Admitting Physician: HARRIETT FENTON Primary Care Provider: NO FAMILY DOCTOR Allergies Allergies No Known Drug Allergies Allergy (Verified 05/04/20 11:09) Hospital Summary - Hospital Course Hospital Course: Chief Complaint Diagnosis shortness of breath for 2-3 days, Allergies Allergy/AdvReac Type Severity Reaction Status Date / Time No Known Drug Allergies Allergy Verified 05/04/20 11:09 Vital Signs (Last 24 hours) Temp Pulse Resp BP Pulse Ox 05/05/20 07:30 93 L 05/05/20 07:07 93 L 05/05/20 00:52 180/97 05/05/20 00:39 98.7 F 97 H 20 191/101 98 05/04/20 21:51 103 H 22 94 L 05/04/20 20:00 98.6 F 98 H 18 185/95 98 05/04/20 15:44 98.5 F 105 H 20 176/91 94 L 05/04/20 14:33 96 H 18 98 05/04/20 11:55 98.2 F 105 H 20 169/84 98 Home Medications Medication Instructions Recorded Confirmed Last Taken Type Budesonide/Formoterol Fumarate 2 puffs IH QAM 05/04/20 05/04/20 05/03/20 History [Symbicort 80-4.5 Mcg Inhaler] Furosemide [Lasix] 40 mg PO DAILY 05/04/20 05/04/20 05/03/20 History Gabapentin 600 mg PO TID 05/04/20 05/04/20 05/03/20 History . Metoprolol Succinate 50 mg PO DAILY 05/04/20 05/04/20 05/03/20 History Multivitamin 1 tab PO DAILY 05/04/20 05/04/20 05/03/20 History Omeprazole 40 mg PO DAILY 05/04/20 05/04/20 05/03/20 History Venlafaxine HCl ER 75 mg 225 mg PO DAILY 05/04/20 05/04/20 05/03/20 History [Effexor XR 75 MG] Vitamin B Complex 2,000 mg PO DAILY 05/04/20 05/04/20 05/03/20 History cephALEXin [Cephalexin] 500 mg PO QID 7 Days #28 tablet 08/31/20 Unknown Rx Current Medications Generic Name Dose Route Start Last Admin Trade Name Freq PRN Reason Stop Dose Admin Acetaminophen 650 mg 05/04/20 10:04 Tylenol 325 Mg PO 06/03/20 10:03 Q4H PRN PRN PAIN AND/OR FEVER Albuterol Sulfate 2.5 mg 05/04/20 11:15 05/04/20 20:04 Proventil 2.5 Mg/3 Ml Neb IH 06/03/20 11:14 2.5 mg Q4H PRN PRN Administration SHORTNESS OF BREATH/WHEEZING Famotidine 20 mg 05/04/20 10:04 05/04/20 21:34 Pepcid 20 Mg Vial IV 06/03/20 10:03 20 mg Q12HT KAROL Administration Furosemide 40 mg 05/04/20 14:00 05/04/20 13:46 Lasix 40 Mg PO 06/03/20 13:59 40 mg DAILY KAROL Administration Gabapentin 600 mg 05/04/20 15:00 05/04/20 21:34 Neurontin 300 Mg PO 06/03/20 14:59 600 mg TID KAROL Administration Sodium Chloride 1,000 mls @ 100 mls/hr 05/04/20 10:04 05/05/20 07:37 Sodium Chloride 0.9% 1000 Ml IV 06/03/20 10:03 Not Given .Q10H KAROL Azithromycin 500 mg in 250 mls @ 250 mls/hr 05/05/20 10:00 Zithromax 500 Mg/ 250 Ml Nacl Premix IV 06/04/20 09:59 Q24H10 KAROL Ceftriaxone Sodium/Dextrose 1 g in 50 mls @ 100 mls/hr 05/05/20 10:00 Rocephin 1 Gm-D5w 50 Ml Bag IV 06/04/20 09:59 Q24H10 KAROL Lorazepam 1 mg 05/04/20 12:24 05/05/20 06:15 Ativan 2 Mg/1 Ml Vial IV 06/03/20 12:23 1 mg Q4H PRN PRN Administration ANXIETY/AGITATION Metoprolol Succinate 50 mg 05/04/20 14:00 05/04/20 13:46 Toprol Xl 50 Mg PO 06/03/20 13:59 50 mg DAILY KAROL Administration Morphine Sulfate 4 mg 05/04/20 10:23 05/05/20 01:55 Morphine Sulfate 4 Mg Inj IV 05/09/20 10:22 4 mg Q2H PRN PRN Administration PAIN Multivitamins 1 tab 05/04/20 14:00 05/04/20 13:46 Julia-Bee With C PO 06/03/20 13:59 1 tab DAILY KAROL Administration Multivitamins Therapeutic 1 tab 05/04/20 14:00 05/04/20 13:45 Theragran Multivitamin PO 06/03/20 13:59 1 tab DAILY KAROL Administration Nicotine 21 mg 05/04/20 15:45 05/04/20 16:52 Nicoderm Cq 21 Mg TOP 06/03/20 15:44 21 mg Q24H KAROL Administration Oxycodone/Acetaminophen 1 tab 05/05/20 08:47 05/05/20 08:58 Oxycodone-Acetaminophen 10-325 PO 05/10/20 08:46 1 tab Q4H PRN PRN Administration PAIN Pantoprazole Sodium 40 mg 05/05/20 10:00 Protonix 40mg Tablet PO 06/04/20 09:59 DAILY [facility] Patient Own Medication 2 each 05/04/20 20:15 05/05/20 07:06 Patient Own Medication IH 06/03/20 18:59 Not Given BIDRT [facility] Venlafaxine HCl 225 mg 05/04/20 14:00 05/04/20 13:46 Effexor Xr 75 Mg PO 06/03/20 13:59 225 mg DAILY KAROL Administration Discontinued Medications Generic Name Dose Route Start Last Admin Trade Name Freq PRN Reason Stop Dose Admin Aspirin 324 mg 05/04/20 10:00 05/04/20 05:38 Ecotrin 81 Mg PO 06/03/20 09:59 Not Given DAILY KAROL Aspirin 324 mg 05/04/20 05:37 05/04/20 05:38 Baby Aspirin 81 Mg Chew PO 05/04/20 05:38 324 mg STAT ONE Administration Fentanyl Citrate 50 mcg 05/04/20 08:02 05/04/20 08:18 Sublimaze 100 Mcg/2 Ml IV 05/04/20 08:03 50 mcg STAT ONE Administration Fentanyl Citrate Confirm 05/04/20 08:11 Sublimaze 100 Mcg/2 Ml Administered 05/04/20 08:12 Dose 100 mcg .ROUTE .STK-MED ONE Azithromycin 500 mg in 250 mls @ 250 mls/hr 05/04/20 06:46 05/04/20 08:21 Zithromax 500 Mg/ 250 Ml Nacl Premix IV 05/04/20 07:45 Infused STAT STA Infusion Ceftriaxone Sodium/Dextrose 2 g in 50 mls @ 100 mls/hr 05/04/20 06:46 05/04/20 08:20 Rocephin 2 Gm-D5w 50ml Bag IV 05/04/20 07:15 Infused STAT STA Infusion Azithromycin Confirm 05/04/20 07:18 Zithromax 500 Mg/ 250 Ml Nacl Premix Administered 05/04/20 07:19 Dose 500 mg in 250 mls @ ud IV .STK-MED ONE Ceftriaxone Sodium/Dextrose Confirm 05/04/20 07:18 Rocephin 2 Gm-D5w 50ml Bag Administered 05/04/20 07:19 Dose 2 g in 50 mls @ ud IV .STK-MED ONE Lorazepam 1 mg 05/04/20 08:09 05/04/20 08:17 Ativan 2 Mg/1 Ml Vial IV 05/04/20 08:10 1 mg STAT ONE Administration Lorazepam Confirm 05/04/20 08:16 Ativan 2 Mg/1 Ml Vial Administered 05/04/20 08:17 Dose 2 mg .ROUTE .STK-MED ONE Lorazepam 2 mg 05/05/20 03:21 05/05/20 03:30 Ativan 2 Mg/1 Ml Vial IV 05/05/20 03:22 2 mg STAT ONE Administration Miscellaneous Information 1 each 05/04/20 13:30 Medication Intervention MC 06/03/20 13:29 .RT TO CHECK ON KAROL Morphine Sulfate 4 mg 05/04/20 06:34 05/04/20 06:36 Morphine Sulfate 4 Mg Inj IV 05/04/20 06:35 4 mg STAT ONE Administration Morphine Sulfate Confirm 05/04/20 06:36 Morphine Sulfate 4 Mg Inj Administered 05/04/20 06:37 Dose 4 mg .ROUTE .STK-MED ONE Pantoprazole Sodium 40 mg 05/04/20 10:04 05/04/20 10:56 Protonix 40 Mg Iv IV 06/03/20 10:03 40 mg Q24H10 KAROL Administration Symbicort 80/4.5 2 each 05/05/20 07:00 Inhaler 06/04/20 06:59 0700 [facility] Patient Own Medication 2 each 05/04/20 20:07 Patient Own Medication 06/03/20 18:59 0700 KAROL Intake & Output (Last 24 hours) 05/02/20 05/03/20 05/04/20 05/05/20 11:59 11:59 11:59 11:59 Intake Total 1080 Output Total 200 5050 Balance -200 -3970 Weight 109 kg Microbiology Results (Last 24 hours) 05/04/20 06:12 Blood Blood Culture Gram Stain - Pending 05/04/20 06:12 Blood Blood Culture - Preliminary NO GROWTH TO DATE 05/04/20 06:12 Blood Blood Culture Gram Stain - Pending 05/04/20 06:12 Blood Blood Culture - Preliminary NO GROWTH TO DATE 05/04/20 07:30 Catherized Urine Culture - Preliminary NO GROWTH TO DATE Laboratory Results (Last 24 hours) 05/04/20 05/04/20 05/04/20 17:45 14:30 11:40 Troponin I < 0.012 < 0.012 < 0.012 Orders (Last 24 hours) Category Date Time Status Telemetry q6h Care 05/04/20 12:26 Active Cardio-Pulmonary Rehab .as ordered Cons 05/04/20 10:33 Active Orientation & Mobility Specialist/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 ROUTINE Cons 05/04/20 10:33 Active Heart-Healthy Diet Diet 05/04/20 Lunch Completed NPO Diet 05/05/20 06:35 Active Nutritional Admission Screen ONCE Diet 05/04/20 10:33 Active Discharge Routine Discharge 05/05/20 Ordered Discharge/Telephone Order Routine Discharge 05/05/20 Active ABDOMEN WITHOUT CONTRAST [CT] Urgent Exams 05/05/20 06:33 Completed HEAD WITHOUT CONTRAST [CT] Urgent Exams 05/05/20 06:33 Completed TROPONIN Q3H Lab 05/04/20 11:40 Completed TROPONIN Q3H Lab 05/04/20 14:30 Completed TROPONIN Q3H Lab 05/04/20 17:45 Completed Albuterol 2.5 mg/3 ml Neb [Proventil 2.5 mg/3 ml Neb Med 05/04/20 11:15 Active ] 2.5 mg IH Q4H PRN PRN Azithromycin 500 mg/250 ml [Zithromax 500 MG/ 250 ML Med 05/05/20 10:00 Active NaCl Premix] 500 mg in 250 ml IV Q24H10 Ceftriaxone 1 GM/50 ML PREMIX* [ROCEPHIN 1 Gm-D5w 50 ml Med 05/05/20 10:00 Active Bag] 1 g in 50 ml IV Q24H10 Furosemide 40 mg [Lasix 40 MG] Med 05/04/20 14:00 Active 40 mg PO DAILY Gabapentin 300 mg [Neurontin 300 mg] Med 05/04/20 15:00 Active 600 mg PO TID Lorazepam 2 mg/1 ml [Ativan 2 MG/1 ML VIAL] Med 05/04/20 12:24 Active 1 mg IV Q4H PRN PRN Lorazepam 2 mg/1 ml [Ativan 2 MG/1 ML VIAL] Med 05/05/20 03:21 Di scontinued 2 mg IV STAT ONE Medication Intervention Med 05/04/20 13:30 Discontinued 1 each MC .RT TO CHECK ON Metoprolol Succinate 50 mg [Toprol Xl 50 MG] Med 05/04/20 14:00 Active 50 mg PO DAILY Multivitamins,Therapeutic Tab* [Theragran Multivitamin* Med 05/04/20 14:00 Active ] 1 tab PO DAILY Nicotine 21 mg [Nicoderm CQ 21 MG] Med 05/04/20 15:45 Active 21 mg TOP Q24H Oxycodone / APAP 10/325 mg [Oxycodone-Acetaminophen Med 05/05/20 08:47 Active 10-325] 1 tab PO Q4H PRN PRN PANTOPRAZOLE 40 mg Tablet [Protonix 40MG Tablet] Med 05/05/20 10:00 Active 40 mg PO DAILY Patient Own Med [Patient Own Medication] Med 05/04/20 20:07 Discontinued 2 each 0700 Patient Own Med [Patient Own Medication] Med 05/05/20 07:00 Discontinued 2 each IH 0700 Patient Own Med [Patient Own Medication] Med 05/04/20 20:15 Active 2 each IH BIDRT Venlafaxine HCl ER 75 mg [Effexor XR 75 MG] Med 05/04/20 14:00 Active 225 mg PO DAILY Vitamin B Comp W-C [Julia-Bee with C] Med 05/04/20 14:00 Active 1 tab PO DAILY RT Screen per Nursing Assess ONCE RT 05/04/20 10:33 Completed Respiratory MDI BID RT 05/04/20 19:00 Active Respiratory Therapy Assessment DAILY RT 05/04/20 14:37 Active Smoking Cessation Education ONCE RT 05/04/20 10:33 Completed Patient Care Notes (Last 24 hours) 05/05/20 10:11 Nursing Note by Danny Collado PT ANXIOUS, ROAMING HALLS, STATING SHE NEEDS TO GO HOME SHE NEEDS HER PAIN MEDICINE A CIGARETTE AND HAS THINGS SHE NEEDS TO DO. DR FENTON WAS CALLED AND NEW ORDER REC'D FOR PERCOCET 10MG Q4H PRN, GAVE PT PAIN MED AND SHE BECAME LESS ANXIOUS. PT AGREED TO HAVE CT SCAN DONE. SCANS COMPLETED, PT RETURNED TO ROOM, IN BED AND RESTING Initialized on 05/05/20 10:11 - END OF NOTE 05/05/20 07:30 Nursing Note by Salud Wang Patient up wondering in hallway and trying to leave facility. Uncooperative and unable to get vital signs. Initialized on 05/05/20 07:30 - END OF NOTE 05/05/20 03:08 SBAR Note by Delores Pavon SITUATION I am calling about JAIMIE KENT the patient's code status is Full Code The problem I am calling about is: Patient cont to c/o pain, very anxious. rating pain 10/10 right lower abdominal pain that radiates into right side. Patient seeing "men up in the ceiling that has been spying on her all night". believes she has chased them away. Patient has been up in the bathroom all night, hanging f/c drainage bag on hook of IV pole or bathroom door hinge. At one point patient walked away from drainage bag still hanging on the door. Nurse stopped her before she pulled f/c out. Patient stated well that's what I'm trying to do." Noted toilet paper with blood on it in the trash can in the bathroom. Patient stated she had been pulling on the catheter because "it's not working." Urine now blood tinged. Staff stated they had just emptied 600 ml of urine from drainage bag and 500 cc present in drainage bag at this time. Shortly found patient back in bathroom with drainage bag hanging again on IV pole. drainage bag unclipped from martinez and metal clip stretched open with urine all over the floor. Patient anxious trying to clean up urine from floor stating the toilet overflowed. Patient was assisted back to bed after she insisted on fully donning her street clothes. B/P 174/101, 99, 20. Previous B/P 191/101. patient repeatedly asking for medications. ASSESSMENT RECOMMENDATION Physician notified at 0308 New Orders received: Do not give any more morphine - causing confusion and hallucinations. Give Additional 2mg Ativan IVP now. Vital Signs (Last 4 hours) Temp Pulse Resp BP Pulse Ox 05/05/20 00:52 180/97 05/05/20 00:39 98.7 F 97 H 20 191/101 98 Diagnois, Code Status Date of Arrival on Unit 05/04/20 Admitted From Emergency Dept Diagnosis shortness of breath for 2-3 days, Resucitation Status Full Code Intake and Output 24 Hours 05/04/20 05/05/20 06:59 06:59 Intake Total 840 Output Total 5250 Balance -4410 Weight 83.915 kg 109 kg Intake: Intake, Oral Amount 840 Output: Output, Urine Amount 200 Output, Fox: 5050 Other: Number of Voids 2 Number of Bowel Movements 1 Physical Assessment Anxiety Level Awake,Calm,Moderate Mental Status Alert Patient Orientation Person,Place,Time Coma Scale Total 15 Breath Sounds [Anterior/ Clear,Diminished Posterior Bilateral Throughout ] Breath Sounds [Bilateral] Diminished Breath Sounds [Posterior Bases Crackles ] Breath Sounds [Anterior/ Clear Posterior Upper Lobe] Cardiac Rhythm-[facility] Sinus Rhythm Bowel Sounds [All Quadrants] Present Abdomen Description Soft,Non-Tender Date Fox Cath Inserted 05/04/20 Urine Appearance Clear Urine Color Yellow Skin Color [place] Skin Temperature Warm Pain Scale (Last 24 Hours) Pain Intensity 10 Pain Intensity 10 Pain Intensity 10 Pain Intensity 10 Pain Intensity 10 Pain Intensity 9 Pain Intensity 9 Pain Intensity 8 Pain Intensity 2 Pain Intensity 8 Pain Intensity 8 Pain Intensity 7 Pain Intensity 10 Pain Intensity 10 Pain Intensity 8 Pain Intensity 8 Pain Intensity 8 Pain Intensity 8 Pain Intensity 4 Pain Intensity 4 Pain Intensity 10 Pain Intensity 6 Pain Intensity 6 PAST MEDICAL HISTORY Neurological History Migraines,Seizures ENT History No Pertinent History Endocrine Medical History Diabetes Type I Respiratory History Asthma,COPD,Lung Cancer Cardiac History High Cholesterol,Hypertension,Myocardial Infarction (DC GI Medical History GERD History Renal Disease Reproductive Disorders Breast Cancer,Uterine Cancer Pyscho-Social History Depression Communicable Disease No Pertinent History Diet Order (Last 24 Hours) 05/04/20 Lunch Heart-Healthy Diet Lab Results (Last 24 Hours) 05/04/20 05/04/20 05/04/20 Range/Units Unknown 17:45 14:30 WBC (4.0-10.5) K/mm3 RBC (4.1-5.4) M/mm3 Hgb (12.0-16.0) gm/dl Hct (35-47) % MCV (78-100) fl MCH (26-32) pg MCHC (32-36) g/dl RDW (11.5-14.0) % Plt Count (150-450) K/mm3 MPV (7.5-11.0) fl Gran % (36.0-66.0) % Eos # (Auto) (0-0.5) Absolute Lymphs (auto) (1.0-4.6) Absolute Monos (auto) (0.0-1.3) Lymphocytes % (24.0-44.0) % Monocytes % (0.0-12.0) % Eosinophils % (0.00-5.0) % Basophils % (0.0-0.4) % Absolute Granulocytes (1.4-6.9) Basophils # (0-0.4) Sodium (137-145) mmol/L Potassium (3.5-5.1) mmol/L Chloride (98-107) mmol/L Carbon Dioxide (22-30) mmol/L Anion Gap (5-15) MEQ/L BUN (7-17) mg/dL Creatinine (0.52-1.04) mg/dL Estimated GFR ML/MIN Glucose (74-106) mg/dL Lactic Acid (0.4-2.0) Calcium (8.4-10.2) mg/dL Magnesium (1.6-2.3) mg/dL Total Bilirubin (0.2-1.3) mg/dL AST (14-36) U/L ALT (0-35) U/L Alkaline Phosphatase (38-126) U/L Troponin I < 0.012 < 0.012 (0.000-0.034) ng/mL NT-Pro-B Natriuret Pep (0-900) pg/mL Serum Total Protein (6.3-8.2) g/dL Albumin (3.5-5.0) g/dL Urine Color (YELLOW) Urine Appearance (CLEAR) Urine pH (5-6) Ur Specific Bath (1.005-1.025) Urine Protein (Negative) Urine Ketones (NEGATIVE) Urine Blood (0-5) Mina/ul Urine Nitrite (NEGATIVE) Urine Bilirubin (NEGATIVE) Urine Urobilinogen (0-1) mg/dL Ur Leukocyte Esterase (NEGATIVE) Urine WBC (Auto) (0-5) /HPF Urine RBC (Auto) (0-2) /HPF U Epithel Cells (Auto) (FEW) /HPF Urine Bacteria (Auto) (NEGATIVE) /HPF Urine Culture Reflexed (NO) Urine Glucose (NEGATIVE) mg/dL Influenza Type A Ag (NEGATIVE) Influenza Type B Ag (NEGATIVE) RSV (PCR) (Negative) SARS-CoV-2 (PCR) NEGATIVE (NEGATIVE) Slides for Path Review 05/04/20 05/04/20 05/04/20 Range/Units 11:40 08:44 07:23 WBC (4.0-10.5) K/mm3 RBC (4.1-5.4) M/mm3 Hgb (12.0-16.0) gm/dl Hct (35-47) % MCV (78-100) fl MCH (26-32) pg MCHC (32-36) g/dl RDW (11.5-14.0) % Plt Count (150-450) K/mm3 MPV (7.5-11.0) fl Gran % (36.0-66.0) % Eos # (Auto) (0-0.5) Absolute Lymphs (auto) (1.0-4.6) Absolute Monos (auto) (0.0-1.3) Lymphocytes % (24.0-44.0) % Monocytes % (0.0-12.0) % Eosinophils % (0.00-5.0) % Basophils % (0.0-0.4) % Absolute Granulocytes (1.4-6.9) Basophils # (0-0.4) Sodium (137-145) mmol/L Potassium (3.5-5.1) mmol/L Chloride (98-107) mmol/L Carbon Dioxide (22-30) mmol/L Anion Gap (5-15) MEQ/L BUN (7-17) mg/dL Creatinine (0.52-1.04) mg/dL Estimated GFR ML/MIN Glucose (74-106) mg/dL Lactic Acid (0.4-2.0) Calcium (8.4-10.2) mg/dL Magnesium (1.6-2.3) mg/dL Total Bilirubin (0.2-1.3) mg/dL AST (14-36) U/L ALT (0-35) U/L Alkaline Phosphatase (38-126) U/L Troponin I < 0.012 < 0.012 (0.000-0.034) ng/mL NT-Pro-B Natriuret Pep (0-900) pg/mL Serum Total Protein (6.3-8.2) g/dL Albumin (3.5-5.0) g/dL Urine Color STRAW (YELLOW) Urine Appearance CLEAR (CLEAR) Urine pH 6.0 (5-6) Ur Specific Bath 1.008 (1.005-1.025) Urine Protein NEGATIVE (Negative) Urine Ketones NEGATIVE (NEGATIVE) Urine Blood NEGATIVE (0-5) Mina/ul Urine Nitrite NEGATIVE (NEGATIVE) Urine Bilirubin NEGATIVE (NEGATIVE) Urine Urobilinogen NEGATIVE (0-1) mg/dL Ur Leukocyte Esterase NEGATIVE (NEGATIVE) Urine WBC (Auto) NONE (0-5) /HPF Urine RBC (Auto) NONE (0-2) /HPF U Epithel Cells (Auto) NONE (FEW) /HPF Urine Bacteria (Auto) NONE (NEGATIVE) /HPF Urine Culture Reflexed ORDERED SEPARATELY (NO) Urine Glucose NEGATIVE (NEGATIVE) mg/dL Influenza Type A Ag (NEGATIVE) Influenza Type B Ag (NEGATIVE) RSV (PCR) (Negative) SARS-CoV-2 (PCR) (NEGATIVE) Slides for Path Review 05/04/20 05/04/20 05/04/20 Range/Units 06:12 06:12 06:12 WBC 6.3 (4.0-10.5) K/mm3 RBC 3.55 L (4.1-5.4) M/mm3 Hgb 8.0 L (12.0-16.0) gm/dl Hct 28.1 L (35-47) % MCV 79.2 (78-100) fl MCH 22.5 L (26-32) pg MCHC 28.5 L (32-36) g/dl RDW 20.3 H (11.5-14.0) % Plt Count 158 (150-450) K/mm3 MPV 10.0 (7.5-11.0) fl Gran % 57.9 (36.0-66.0) % Eos # (Auto) 0.11 (0-0.5) Absolute Lymphs (auto) 2.10 (1.0-4.6) Absolute Monos (auto) 0.40 (0.0-1.3) Lymphocytes % 33.4 (24.0-44.0) % Monocytes % 6.4 (0.0-12.0) % Eosinophils % 1.7 (0.00-5.0) % Basophils % 0.6 (0.0-0.4) % Absolute Granulocytes 3.64 (1.4-6.9) Basophils # 0.04 (0-0.4) Sodium 137 (137-145) mmol/L Potassium 3.5 (3.5-5.1) mmol/L Chloride 105 (98-107) mmol/L Carbon Dioxide 23 (22-30) mmol/L Anion Gap 13.1 (5-15) MEQ/L BUN 15 (7-17) mg/dL Creatinine 0.84 (0.52-1.04) mg/dL Estimated GFR > 60.0 ML/MIN Glucose 130 H (74-106) mg/dL Lactic Acid (0.4-2.0) Calcium 8.8 (8.4-10.2) mg/dL Magnesium 2.1 (1.6-2.3) mg/dL Total Bilirubin 0.30 (0.2-1.3) mg/dL AST 81 H (14-36) U/L ALT 41 H (0-35) U/L Alkaline Phosphatase 144 H (38-126) U/L Troponin I < 0.012 (0.000-0.034) ng/mL NT-Pro-B Natriuret Pep 43.6 (0-900) pg/mL Serum Total Protein 7.3 (6.3-8.2) g/dL Albumin 4.1 (3.5-5.0) g/dL Urine Color (YELLOW) Urine Appearance (CLEAR) Urine pH (5-6) Ur Specific Bath (1.005-1.025) Urine Protein (Negative) Urine Ketones (NEGATIVE) Urine Blood (0-5) Mina/ul Urine Nitrite (NEGATIVE) Urine Bilirubin (NEGATIVE) Urine Urobilinogen (0-1) mg/dL Ur Leukocyte Esterase (NEGATIVE) Urine WBC (Auto) (0-5) /HPF Urine RBC (Auto) (0-2) /HPF U Epithel Cells (Auto) (FEW) /HPF Urine Bacteria (Auto) (NEGATIVE) /HPF Urine Culture Reflexed (NO) Urine Glucose (NEGATIVE) mg/dL Influenza Type A Ag (NEGATIVE) Influenza Type B Ag (NEGATIVE) RSV (PCR) (Negative) SARS-CoV-2 (PCR) (NEGATIVE) Slides for Path Review YES 05/04/20 05/04/20 Range/Units 06:10 05:20 WBC (4.0-10.5) K/mm3 RBC (4.1-5.4) M/mm3 Hgb (12.0-16.0) gm/dl Hct (35-47) % MCV (78-100) fl MCH (26-32) pg MCHC (32-36) g/dl RDW (11.5-14.0) % Plt Count (150-450) K/mm3 MPV (7.5-11.0) fl Gran % (36.0-66.0) % Eos # (Auto) (0-0.5) Absolute Lymphs (auto) (1.0-4.6) Absolute Monos (auto) (0.0-1.3) Lymphocytes % (24.0-44.0) % Monocytes % (0.0-12.0) % Eosinophils % (0.00-5.0) % Basophils % (0.0-0.4) % Absolute Granulocytes (1.4-6.9) Basophils # (0-0.4) Sodium (137-145) mmol/L Potassium (3.5-5.1) mmol/L Chloride (98-107) mmol/L Carbon Dioxide (22-30) mmol/L Anion Gap (5-15) MEQ/L BUN (7-17) mg/dL Creatinine (0.52-1.04) mg/dL Estimated GFR ML/MIN Glucose (74-106) mg/dL Lactic Acid 1.3 (0.4-2.0) Calcium (8.4-10.2) mg/dL Magnesium (1.6-2.3) mg/dL Total Bilirubin (0.2-1.3) mg/dL AST (14-36) U/L ALT (0-35) U/L Alkaline Phosphatase (38-126) U/L Troponin I (0.000-0.034) ng/mL NT-Pro-B Natriuret Pep (0-900) pg/mL Serum Total Protein (6.3-8.2) g/dL Albumin (3.5-5.0) g/dL Urine Color (YELLOW) Urine Appearance (CLEAR) Urine pH (5-6) Ur Specific Bath (1.005-1.025) Urine Protein (Negative) Urine Ketones (NEGATIVE) Urine Blood (0-5) Mina/ul Urine Nitrite (NEGATIVE) Urine Bilirubin (NEGATIVE) Urine Urobilinogen (0-1) mg/dL Ur Leukocyte Esterase (NEGATIVE) Urine WBC (Auto) (0-5) /HPF Urine RBC (Auto) (0-2) /HPF U Epithel Cells (Auto) (FEW) /HPF Urine Bacteria (Auto) (NEGATIVE) /HPF Urine Culture Reflexed (NO) Urine Glucose (NEGATIVE) mg/dL Influenza Type A Ag NEGATIVE (NEGATIVE) Influenza Type B Ag NEGATIVE (NEGATIVE) RSV (PCR) NEGATIVE (Negative) SARS-CoV-2 (PCR) (NEGATIVE) Slides for Path Review Lactic Acid (Last 24 Hours) 05/04/20 05:20 Lactic Acid 1.3 Microbiology Results (Last 24 Hours) 05/04/20 07:30 Urine Culture - Pending Catherized 05/04/20 06:12 Blood Culture Gram Stain - Pending Blood Blood Culture - Pending 05/04/20 06:12 Blood Culture Gram Stain - Pending Blood Blood Culture - Pending Orders (Last 24 Hours) Category Date Time Status Up Ad Sabrina ROUTINE Activity 05/04/20 10:04 Active Call Admit Doctor for Orders ON ADMISSION Care 05/04/20 10:04 Active Code Status Order ROUTINE Care 05/04/20 10:04 Active Fox [Catheter-[place] Fox] STAT Care 05/04/20 07:23 Active IV Care Q6H Care 05/04/20 10:[address] in Observation ROUTINE Care 05/04/20 10:04 Active Margaux Anderson ROUTINE Care 05/04/20 10:04 Active Telemetry q6h Care 05/04/20 12:26 Active Cardio-Pulmonary Rehab .as ordered Cons 05/04/20 10:33 Active Orientation & Mobility Specialist/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 ROUTINE Cons 05/04/20 10:33 Active Heart-Healthy Diet Diet 05/04/20 Lunch Active Nutritional Admission Screen ONCE Diet 05/04/20 10:33 Active BLOOD CULTURE Stat Lab 05/04/20 06:12 Received CBC W DIFF AM.LAB Lab 05/05/20 04:00 Ordered CMP AM.LAB Lab 05/05/20 04:00 Ordered CULTURE,URINE Stat Lab 05/04/20 07:30 Received Acetaminophen 325 mg [Tylenol 325 mg] Med 05/04/20 10:04 Active 650 mg PO Q4H PRN PRN Albuterol 2.5 mg/3 ml Neb [Proventil 2.5 mg/3 ml Neb Med 05/04/20 11:15 Active ] 2.5 mg IH Q4H PRN PRN Azithromycin 500 mg/250 ml [Zithromax 500 MG/ 250 ML Med 05/05/20 10:00 Active NaCl Premix] 500 mg in 250 ml IV Q24H10 Ceftriaxone 1 GM/50 ML PREMIX* [ROCEPHIN 1 Gm-D5w 50 ml Med 05/05/20 10:00 Active Bag] 1 g in 50 ml IV Q24H10 Famotidine 20 mg Vial [Pepcid 20 MG VIAL] Med 05/04/20 10:04 Active 20 mg IV Q12HT Furosemide 40 mg [Lasix 40 MG] Med 05/04/20 14:00 Active 40 mg PO DAILY Gabapentin 300 mg [Neurontin 300 mg] Med 05/04/20 15:00 Active 600 mg PO TID Lorazepam 2 mg/1 ml [Ativan 2 MG/1 ML VIAL] Med 05/04/20 12:24 Active 1 mg IV Q4H PRN PRN Metoprolol Succinate 50 mg [Toprol Xl 50 MG] Med 05/04/20 14:00 Active 50 mg PO DAILY Morphine Sulfate 4 mg Inj Med 05/04/20 10:23 Active 4 mg IV Q2H PRN PRN Multivitamins,Therapeutic Tab* [Theragran Multivitamin* Med 05/04/20 14:00 Active ] 1 tab PO DAILY NaCl 0.9% 1000 ml [Sodium Chloride 0.9% 1000 ML] 1,000 Med 05/04/20 10:04 Active ml IV 100 mls/hr Nicotine 21 mg [Nicoderm CQ 21 MG] Med 05/04/20 15:45 Ordered 21 mg TOP Q24H PANTOPRAZOLE 40 mg Tablet [Protonix 40MG Tablet] Med 05/05/20 10:00 Active 40 mg PO DAILY Patient Own Med [Patient Own Medication] Med 05/04/20 20:15 Ordered 2 each IH BIDRT Venlafaxine HCl ER 75 mg [Effexor XR 75 MG] Med 05/04/20 14:00 Active 225 mg PO DAILY Vitamin B Comp W-C [Julia-Bee with C] Med 05/04/20 14:00 Active 1 tab PO DAILY Oxygen Nasal Cannula 2 lpm RT 05/04/20 10:04 Active Pulse Oximetry CONTINUOUS RT 05/04/20 10:04 Active Respiratory MDI BID RT 05/04/20 19:00 Active Respiratory Therapy Assessment DAILY RT 05/04/20 14:37 Active Nursing Notes (Last 12 hours) 05/04/20 16:54 Nursing Note by Salud Wang 1400 Dial a flow used d/t patient keeps bending her arm and does not want an new IV stick in a different area. Initialized on 05/04/20 16:54 - END OF NOTE Active Visit Medications Generic Name Dose Route Start Last Admin Trade Name Freq PRN Reason Stop Dose Admin Acetaminophen 650 mg 05/04/20 10:04 Tylenol 325 Mg PO 06/03/20 10:03 Q4H PRN PRN PAIN AND/OR FEVER Albuterol Sulfate 2.5 mg 05/04/20 11:15 05/04/20 20:04 Proventil 2.5 Mg/3 Ml Neb IH 06/03/20 11:14 2.5 mg Q4H PRN PRN Administration SHORTNESS OF BREATH/WHEEZING Famotidine 20 mg 05/04/20 10:04 05/04/20 21:34 Pepcid 20 Mg Vial IV 06/03/20 10:03 20 mg Q12HT KAROL Administration Furosemide 40 mg 05/04/20 14:00 05/04/20 13:46 Lasix 40 Mg PO 06/03/20 13:59 40 mg DAILY KAROL Administration Gabapentin 600 mg 05/04/20 15:00 05/04/20 21:34 Neurontin 300 Mg PO 06/03/20 14:59 600 mg TID KAROL Administration Sodium Chloride 1,000 mls @ 100 mls/hr 05/04/20 10:04 05/04/20 12:06 Sodium Chloride 0.9% 1000 Ml IV 06/03/20 10:03 100 mls/hr .Q10H KAROL Administration Azithromycin 500 mg in 250 mls @ 250 mls/hr 05/05/20 10:00 Zithromax 500 Mg/ 250 Ml Nacl Premix IV 06/04/20 09:59 Q24H10 KAROL Ceftriaxone Sodium/Dextrose 1 g in 50 mls @ 100 mls/hr 05/05/20 10:00 Rocephin 1 Gm-D5w 50 Ml Bag IV 06/04/20 09:59 Q24H10 KAROL Lorazepam 1 mg 05/04/20 12:24 05/05/20 02:20 Ativan 2 Mg/1 Ml Vial IV 06/03/20 12:23 1 mg Q4H PRN PRN Administration ANXIETY/AGITATION Metoprolol Succinate 50 mg 05/04/20 14:00 05/04/20 13:46 Toprol Xl 50 Mg PO 06/03/20 13:59 50 mg DAILY KAROL Administration Morphine Sulfate 4 mg 05/04/20 10:23 05/05/20 01:55 Morphine Sulfate 4 Mg Inj IV 05/09/20 10:22 4 mg Q2H PRN PRN Administration PAIN Multivitamins 1 tab 05/04/20 14:00 05/04/20 13:46 Julia-Bee With C PO 06/03/20 13:59 1 tab DAILY KAROL Administration Multivitamins Therapeutic 1 tab 05/04/20 14:00 05/04/20 13:45 Theragran Multivitamin PO 06/03/20 13:59 1 tab DAILY KAROL Administration Nicotine 21 mg 05/04/20 15:45 05/04/20 16:52 Nicoderm Cq 21 Mg TOP 06/03/20 15:44 21 mg Q24H KAROL Administration Pantoprazole Sodium 40 mg 05/05/20 10:00 Protonix 40mg Tablet PO 06/04/20 09:59 DAILY KAROL Patient Own Medication 2 each 05/04/20 20:15 05/04/20 20:04 Patient Own Medication IH 06/03/20 18:59 2 each BIDRT KAROL Administration Venlafaxine HCl 225 mg 05/04/20 14:00 05/04/20 13:46 Effexor Xr 75 Mg PO 06/03/20 13:59 225 mg DAILY KAROL Administration Home Medications Medication Instructions Recorded Confirmed Last Taken Type Budesonide/Formoterol Fumarate 2 puffs IH QAM 05/04/20 05/04/20 05/03/20 History [Symbicort 80-4.5 Mcg Inhaler] Furosemide [Lasix] 40 mg PO DAILY 05/04/20 05/04/20 05/03/20 History Gabapentin 600 mg PO TID 05/04/20 05/04/20 05/03/20 History . Metoprolol Succinate 50 mg PO DAILY 05/04/20 05/04/20 05/03/20 History Multivitamin 1 tab PO DAILY 05/04/20 05/04/20 05/03/20 History Omeprazole 40 mg PO DAILY 05/04/20 05/04/20 05/03/20 History Venlafaxine HCl ER 75 mg 225 mg PO DAILY 05/04/20 05/04/20 05/03/20 History [Effexor XR 75 MG] Vitamin B Complex 2,000 mg PO DAILY 05/04/20 05/04/20 05/03/20 History Initialized on 05/05/20 03:08 - END OF NOTE 05/04/20 16:54 Nursing Note by Sutliff,Salud 1400 Dial a flow used d/t patient keeps bending her arm and does not want an new IV stick in a different area. Initialized on 05/04/20 16:54 - END OF NOTE - Vitals & Intake/Output Vital Signs: Vital Signs Temperature 98.7 F 05/05/20 00:39 Pulse Rate 97 H 05/05/20 00:39 Respiratory Rate 20 05/05/20 00:39 Blood Pressure 180/97 05/05/20 00:52 O2 Sat by Pulse Oximetry 93 L 05/05/20 07:30 Intake & Output: Intake & Output 05/02/20 05/03/20 05/04/20 05/05/20 11:59 11:59 11:59 11:59 Intake Total 1080 Output Total 200 5050 Balance -200 -3970 Weight 109 kg - Lab Result Diagrams: 05/04/20 06:12 05/04/20 06:12 Lab Results-Last 24 Hrs: Lab Results-Last 24 Hours 05/04/20 05/04/20 05/04/20 Range/Units 11:40 14:30 17:45 Troponin I < 0.012 < 0.012 < 0.012 (0.000-0.034) ng/mL Micro Results-Entire Visit: Microbiology 05/04/20 06:12 Blood Culture - Preliminary Blood NO GROWTH TO DATE 05/04/20 06:12 Blood Culture - Preliminary Blood NO GROWTH TO DATE 05/04/20 07:30 Urine Culture - Preliminary Catherized NO GROWTH TO DATE - Radiology Exams Ordered Rad Exams-Entire Visit: Radiology Procedures Category Date Time Status ABDOMEN WITHOUT CONTRAST [CT] Urgent Exams 05/05/20 06:33 Completed CHEST 1 VIEW (PORTABLE) Stat Exams 05/04/20 05:21 Completed HEAD WITHOUT CONTRAST [CT] Urgent Exams 05/05/20 06:33 Completed - Procedures and Test Procedures and Tests throughout Hospitalization: Therapy Orders & Screens 05/04/20 10:04 Oxygen Nasal Cannula 2 lpm Comment: Respiratory Therapy Consult ROUTINE Comment: Reason For Exam: 05/04/20 10:33 RT Screen per Nursing Assess ONCE Comment: Protocol Order Physician Instructions: Greater than 3 points order RT Admission Screen Reason For Exam: Triggered on Admission Diagnosis: shortness of breath for 2-3 days, Diagnosis: shortness of breath for 2-3 days, Pneumonia: Yes Home O2: Yes Asthma: Yes CHF: No Home CPAP/BIPAP: No Home Nebs/MDI: Yes Total Points: 17 Smoking Cessation Education ONCE Comment: Diagnosis: shortness of breath for 2-3 days, Smoking Status: Current some day smoker How long have you smoked: 40 yrs Have you smoked in the past 12 months: Yes Approximately how many cigarettes per day: 3 Do you dip or chew tobacco: No 05/04/20 14:37 Respiratory Therapy Assessment DAILY Comment: Diagnosis: shortness of breath for 2-3 days, 05/04/20 19:00 Respiratory MDI BID Comment: Diagnosis: shortness of breath for 2-3 days, Discharge Exam General Appearance: no apparent distress, lethargy Neurologic Exam: alert, oriented x 3, cooperative, normal mood/affect, nml cerebellar function, sensation nml, No motor deficits Eye Exam: PERRL, EOMI, eyes nml inspection Ears, Nose, Throat Exam: normal ENT inspection, pharynx normal, moist mucous m embranes Neck Exam: normal inspection, non-tender, supple, full range of motion Respiratory Exam: normal breath sounds, lungs clear, No respiratory distress Cardiovascular Exam: regular rate/rhythm, normal heart sounds Gastrointestinal/Abdomen Exam: soft, No tenderness, No mass Pelvic Exam: deferred Rectal Exam: deferred Back Exam: normal inspection, normal range of motion, No CVA tenderness, No vertebral tenderness Extremity Exam: normal inspection, normal range of motion Skin Exam: normal color, warm, dry Final Diagnosis/Problem List - Final Discharge Diagnosis/Problem (1) Pneumonia of right lung due to infectious organism Current Visit: Yes Status: Acute Assessment & Plan: improved Code(s): J18.9 - PNEUMONIA, UNSPECIFIED ORGANISM (2) Breast cancer in female Current Visit: Yes Status: Acute Code(s): C50.919 - MALIGNANT NEOPLASM OF UNSP SITE OF UNSPECIFIED FEMALE BREAST - Discharge Discharge Date: 05/05/20 Disposition: Home, Self-Care Condition: Stable Prescriptions: New cephALEXin [Cephalexin] 500 mg PO QID 7 Days #28 tablet Continue Gabapentin 600 mg PO TID Venlafaxine HCl ER 75 mg [Effexor XR 75 MG] 225 mg PO DAILY Omeprazole 40 mg PO DAILY Metoprolol Succinate 50 mg PO DAILY Furosemide [Lasix] 40 mg PO DAILY Budesonide/Formoterol Fumarate [Symbicort 80-4.5 Mcg Inhaler] 2 puffs IH QAM Vitamin B Complex 2,000 mg PO DAILY Multivitamin 1 tab PO DAILY Instructions: Pneumonia, Adult (DC) Additional Instructions: DR FENTON APPOINTMENT AT [facility] OFFICE Follow up with: HARRIETT FENTON MD [ACTIVE STAFF] - 05/06/20 1:30 pm
== END 2020-05-05 11:06 | disposition home or self-care (01) ==
LOC: ED 05:12 → MED SURG 09:37
PROVIDERS: ADMIT General Practice; ATTEND General Practice
DX: J18.9 Pneumonia, unspecified organism (principal); I10 Essential (primary) hypertension; E78.5 Hyperlipidemia, unspecified; C34.90 Malignant neoplasm of unspecified part of unspecified bronchus or lung; C50.919 Malignant neoplasm of unspecified site of unspecified female breast; E11.9 Type 2 diabetes mellitus without complications; J44.9 Chronic obstructive pulmonary disease, unspecified; E78.00 Pure hypercholesterolemia, unspecified; Z79.899 Other long term (current) drug therapy; Z85.3 Personal history of malignant neoplasm of breast
CPT/HCPCS: 36415; 51702; 70450; 74150; 80053; 81001; 83605; 83735; 83880; 84484; 85025; 87040; 87086; 87631; 93005; 93041; 93268; 94640; 94762; 96365; 96368; 96374; 96375; 99291; G0378; U0003; 36000; 71045; 99285; J0456; J0696; J2060; J2270; J3010; J7609; A9270-GY

== ENCOUNTER 2020-05-20 05:25 | Observation (INO) | payer MEDICAID ==
[2020-05-20] MEDS ORDERED: TORAdol 30 mg Injection IV ONE (06:00)
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
[2020-05-20 06:17] LABS: Absolute Neutrophil Ct (ANC) 3.39 (1.4-6.9); BASOPHIL % 0.6 % (0.0-0.4); Basophil (Absolute #) 0.05 (0-0.4); Eosinophil % 1.9 % (0.00-5.0); Eosinophil (Absolute #) 0.16 (0-0.5); Hematocrit 28.9 % (35-47); Hemoglobin 8.3 gm/dl (12.0-16.0); Lymphocyte (Absolute #) 4.05 (1.0-4.6); Lymphocytes % 48.7 % (24.0-44.0); Mean Cell Volume 76.7 fl (78-100); Mean Corpuscular Hgb Concent. 28.7 g/dl (32-36); Mean Platelet Volume 10.4 fl (7.5-11.0); Monocyte (Absolute #) 0.66 (0.0-1.3); Monocytes % 7.9 % (0.0-12.0); Neutrophil % 40.9 % (36.0-66.0); Platelet Count 290 K/mm3 (150-450); Red Blood Count 3.77 M/mm3 (4.1-5.4); Red Cell Distribution Width 19.2 % (11.5-14.0); White Blood Count 8.3 K/mm3 (4.0-10.5)
[2020-05-20] MEDS ORDERED: TORAdol 30 mg Injection ONE (06:22)
[2020-05-20 06:29] LABS: ALBUMIN 4.4 g/dL (3.5-5.0); ANION GAP 16.2 MEQ/L (5-15); BILIRUBIN,TOTAL 0.3 mg/dL (0.2-1.3); Calcium 8.9 mg/dL (8.4-10.2); Creatinine 1 1.46 mg/dL (0.52-1.04); Potassium 3.4 mmol/L (3.5-5.1); Total Protein 7.6 g/dL (6.3-8.2)
[2020-05-20 07:37] LABS: Slide Review 1 YES
[2020-05-20] MEDS ORDERED: Sodium Chloride 0.9% 1000 ML 1,000 ML ONE (09:12)
[2020-05-20] MEDS ORDERED: Klor Con 10 MEQ PO ONE ×2 (09:12)
[2020-05-20] MEDS ORDERED: Sodium Chloride 0.9% 1000 ML 1,000 ML IV SCH ×3 (09:15→10:00)
[2020-05-20] MEDS ORDERED: MORPHINE SULFATE 2 MG INJ IV PRN ×2 (09:55→09:57)
[2020-05-20] MEDS ORDERED: NICODERM CQ 14 MG TOP SCH (10:30)
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
[2020-05-20] MEDS ORDERED: TYLENOL EXTRA STRENGTH 500 MG PO ONE (14:06)
[2020-05-20] MEDS ORDERED: TYLENOL EXTRA STRENGTH 500 MG PO PRN (15:59)
[2020-05-20 16:21] VITALS: BP 147/94; PULSE 90; O2SAT 98
[2020-05-20] MEDS ORDERED: Protonix 40MG Tablet PO SCH (17:00)
[2020-05-20] MEDS ORDERED: Effexor XR 75 MG PO SCH (17:00)
[2020-05-20] MEDS ORDERED: THERAGRAN MULTIVITAMIN PO SCH (17:00)
[2020-05-20] MEDS ORDERED: NEURONTIN 300 MG PO SCH (17:00)
[2020-05-20] MEDS ORDERED: Toprol Xl 50 MG PO SCH (17:00)
[2020-05-20] MEDS ORDERED: Lasix 40 MG PO SCH (18:00)
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
[2020-05-21] MEDS ORDERED: NON-FORMULARY ITEM (Omeprazole [Omeprazole] 40 MG) PO SCH (10:00)
[2020-05-21] MEDS ORDERED: VITAMIN B COMPLEX PO SCH (10:00)
[2020-05-21] MEDS ORDERED: NON-FORMULARY ITEM (Multivitamin [Multivitamin] 1 TAB) PO SCH (10:00)
[2020-05-21] MEDS ORDERED: NON-FORMULARY ITEM (Budesonide/Formoterol Fumarate [Symbicort 80-4.5 Mcg Inhaler] 2 PUFFS) IH SCH (10:00)
[2020-05-21] MEDS ORDERED: FLUZONE QUAD 2020-2021 SYRINGE IM ONE (13:00)
== END 2020-05-20 20:03 | disposition home or self-care (01) ==
LOC: ED 05:25 → ICU 09:36
PROVIDERS: ADMIT General Practice; ATTEND General Practice
DX: F10.929 Alcohol use, unspecified with intoxication, unspecified (principal); Y09 Assault by unspecified means; S00.03XA Contusion of scalp, initial encounter; Z79.899 Other long term (current) drug therapy; R51 Headache; M54.2 Cervicalgia; J44.9 Chronic obstructive pulmonary disease, unspecified; E11.9 Type 2 diabetes mellitus without complications; I10 Essential (primary) hypertension; E78.00 Pure hypercholesterolemia, unspecified; Z85.118 Personal history of other malignant neoplasm of bronchus and lung; Z85.3 Personal history of malignant neoplasm of breast; F17.200 Nicotine dependence, unspecified, uncomplicated
CPT/HCPCS: 36000; 36415; 70450; 71250; 72125; 80053; 80307; 84484; 85025; 93268; 96374; 99284; G0378; J1885; A9270-GY; G0480

== ENCOUNTER 2021-11-07 15:06 | Emergency (ER) | payer OTHER ==
[2021-11-07] MEDS ORDERED: NORVASC 5 MG PO ONE (15:38)
[2021-11-07] MEDS ORDERED: Hydromorphone 1 mg/ml Injection IV ONE ×2 (15:39→17:48)
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
[2021-11-07] MEDS ORDERED: Hydromorphone 1 mg/ml Injection ONE ×2 (15:58→17:59)
[2021-11-07 16:13] LABS: Absolute Neutrophil Ct (ANC) 2.69 (1.4-6.9); Basophil (Absolute #) 0.03 (0-0.4); Eosinophil % 2.2 % (0.00-5.0); Eosinophil (Absolute #) 0.12 (0-0.5); Hematocrit 42.5 % (35-47); Hemoglobin 14.3 gm/dl (12.0-16.0); Lymphocyte (Absolute #) 2.22 (1.0-4.6); Mean Cell Volume 90.6 fl (78-100); Mean Corpuscular Hemoglobin 30.5 pg (26-32); Mean Corpuscular Hgb Concent. 33.6 g/dl (32-36); Mean Platelet Volume 10.9 fl (7.5-11.0); Monocyte (Absolute #) 0.35 (0.0-1.3); Monocytes % 6.5 % (0.0-12.0); Neutrophil % 49.7 % (36.0-66.0); Platelet Count 119 K/mm3 (150-450); Red Blood Count 4.69 M/mm3 (4.1-5.4); Red Cell Distribution Width 14.5 % (11.5-14.0); White Blood Count 5.4 K/mm3 (4.0-10.5)
[2021-11-07 16:22] LABS: ALBUMIN 4.6 g/dL (3.5-5.0); ALKALINE PHOSPHATASE 132 U/L (38-126); BLOOD UREA NITROGEN 17 mg/dL (7-17); CHLORIDE 97 mmol/L (98-107); Calcium 9.3 mg/dL (8.4-10.2); Carbon Dioxide 29 mmol/L (22-30); Creatinine 1 0.52 mg/dL (0.52-1.04); EST GLOMERULAR FILTRATION RATE > 60.0 ML/MIN; Glucose 99 mg/dL (74-106); Potassium 3.8 mmol/L (3.5-5.1); SGOT/AST 101 U/L (14-36); SGPT/ALT 70 U/L (0-35); SODIUM 137 mmol/L (137-145)
[2021-11-07 17:44] LABS: Appearance CLEAR (CLEAR); Bilirubin NEGATIVE (NEGATIVE); Blood NEGATIVE Ery/ul (0-5); Glucose NEGATIVE (NEGATIVE); Ketones NEGATIVE (NEGATIVE); Leukocyte Esterase NEGATIVE (NEGATIVE); Nitrite NEGATIVE (NEGATIVE); Protein,Urine Dip NEGATIVE (Negative); Specific Gravity 1.005 (1.005-1.025); Urobilinogen NEGATIVE mg/dL (0-1)
[2021-11-07 17:46] LABS: Bacteria NONE SEEN /HPF (NEGATIVE)
[2021-11-07 18:28] VITALS: BP 132/83; PULSE 106; O2SAT 97
== END 2021-11-07 18:29 | disposition home or self-care (01) ==
LOC: ED 15:06
DX: I10 Essential (primary) hypertension (principal); Z79.891 Long term (current) use of opiate analgesic; E78.5 Hyperlipidemia, unspecified; J44.9 Chronic obstructive pulmonary disease, unspecified; Z86.718 Personal history of other venous thrombosis and embolism; I25.2 Old myocardial infarction; K21.9 Gastro-esophageal reflux disease without esophagitis; Z72.0 Tobacco use; Z79.899 Other long term (current) drug therapy
CPT/HCPCS: 36415; 80053; 81001; 85025; 96374; 99284; J1170; J1642

== ENCOUNTER 2022-11-06 14:14 | Emergency (ER) | payer OTHER ==
[2022-11-06 14:24] VITALS: BP 134/109
--- NOTE | 2022-11-06 14:25 | ERPHSYRPT ---
- History of Present Illness Time Seen by Provider: 11/06/22 14:25 Source: patient Exam Limitations: no limitations Physician History: This is a 62-year-old morbidly obese patient of Dr. Fenton who presents with right foot and ankle pain that has been present for a few days and then worsened last evening. She did not suffer any new acute trauma. However, approximately 6 weeks ago patient underwent a right knee surgery and is undergoing physical therapy postoperatively. Patient has had multiple different surgeries on her right lower extremity including the right foot and ankle. Patient states that she took one of her pain medicines (hydrocodone) this morning that she was given for her postoperative knee pain and that medication "did not touch my right foot and ankle pain". Patient did walk to the room with a walker. Patient is a daily smoker of cigarettes. Patient has a history of migraine headaches, DVT, hyperlipidemia, hypertension, COPD, asthma, DJD, fibromyalgia, bipolar disorder, and panic disorder Method of Injury: other Severity of Pain-Max: moderate Severity of Pain-Current: moderate Lower Extremities Pain: foot: right, ankle: right Modifying Factors: Improves With: movement Associated Symptoms: other (Is able to bear weight but hurts to do so) Allergies/Adverse Reactions: No Known Drug Allergies Allergy (Verified 11/06/22 14:21) Home Medications: Budesonide/Formoterol Fumarate [Symbicort 80-4.5 Mcg Inhaler] 2 puffs IH QAM 05/04/20 [History] Furosemide [Lasix] 40 mg PO DAILY 05/04/20 [History] Gabapentin 600 mg PO TID 05/04/20 [History] Metoprolol Succinate 50 mg PO DAILY 05/04/20 [History] Multivitamin 1 tab PO DAILY 05/04/20 [History] Venlafaxine HCl ER 75 mg [Effexor XR 75 MG] 300 mg PO DAILY 05/04/20 [History] Vitamin B Complex 2,000 mg PO DAILY 05/04/20 [History] Aspirin/Acetaminophen/Caffeine [Excedrin Migraine Caplet] 2 each PO DAILY 11/04/21 [History] Lisinopril 10 mg [Zestril 10 MG] 1 tab PO DAILY 11/04/21 [History] Hx Tetanus, Diphtheria Vaccination/Date Given: Yes Hx Influenza Vaccination/Date Given: No Hx Pneumococcal Vaccination/Date Given: No Travel Risk - International Travel Have you traveled outside of the country in past 3 weeks: No - Coronavirus Screening Are you exhibiting any of the following symptoms?: No Close contact with a COVID-19 positive Pt in past 14-21 Days: No - Vaccine Status Have you recieved a Covid-19 vaccination: Yes 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 Dates if Unknown: ? - Review of Systems Constitutional: No Symptoms Eyes: No Symptoms Ears, Nose, & Throat: No Symptoms Respiratory: No Symptoms Cardiac: No Symptoms Abdominal/Gastrointestinal: No Symptoms Genitourinary Symptoms: No Symptoms Musculoskeletal: Joint Pain (Right foot and ankle pain), No Fall, No Injury Skin: No Symptoms Neurological: No Symptoms Psychological: No Symptoms Endocrine: No Symptoms Hematologic/Lymphatic: No Symptoms Immunological/Allergic: No Symptoms All Other Systems: Reviewed and Negative - Past Medical History Pertinent Past Medical History: Yes Neurological History: Migraines, Seizures ENT History: No Pertinent History Cardiac History: Deep Vein Thrombosis, High Cholesterol, Hypertension, Myocardial Infarction ([place]) Respiratory History: Asthma, COPD Endocrine Medical History: No Pertinent History Musculoskeletal History: Arthritis, Degenerative Disk Disease, Fibromyalgia, Fractures, Osteoarthritis GI Medical History: GERD, Gallbladder Disease, Hepatitis History: No Pertinent History Psycho-Social History: Bipolar, Depression, Panic Disorder, Other Female Reproductive Disorders: Uterine Cancer Other Medical History: hepatitis C - Past Surgical History Past Surgical History: Yes Neuro Surgical History: No Pertinent History Cardiac: Cardiac Catheterization Respiratory: No Pertinent History Gastrointestinal: Appendectomy, Cholecystectomy Genitourinary: No Pertinent History Musculoskeletal: No Pertinent History, Orthopedic Surgery Female Surgical History: Hysterectomy, Lumpectomy Other Surgical History: right knee surgeries,right leg - Social History Smoking Status: Current every day smoker How long have you smoked: 46 years Exposure to second hand smoke: No Drug Use: none Patient Lives Alone: No Significant Family History: no pertinent family hx - Nursing Vital Signs Nursing Vital Signs: Initial Vital Signs Temperature 99.3 F 11/06/22 14:23 Pulse Rate 92 H 11/06/22 14:23 Respiratory Rate 18 11/06/22 14:23 Blood Pressure 134/109 11/06/22 14:23 O2 Sat by Pulse Oximetry 99 11/06/22 14:23 Pain Scale Pain Intensity 10 - Physical Exam General Appearance: no apparent distress, alert, anxiety, obese Eyes, Ears, Nose, Throat Exam: normal ENT inspection, moist mucous membranes Neck Exam: normal inspection, non-tender, supple, full range of motion Cardiovascular/Respiratory Exam: chest non-tender, no respiratory distress Gastrointestinal/Abdominal Exam: non-tender Back Exam: normal inspection, normal range of motion, No CVA tenderness, No vertebral tenderness Hips Exam: bilateral: non-tender, normal inspection, normal range of motion, no evidence of injury Legs Exam: bilateral leg: non-tender, normal inspection, normal range of motion, no evidence of injury Knees Exam: right knee: soft tissue tenderness (Anterior knee with some mild postoperative swelling and tenderness. These are postoperative findings), swelling (Postoperative), left knee: non-tender, normal inspection, normal range of motion, no evidence of injury Ankle Exam: right ankle: soft tissue tenderness (Right lateral aspect), left ankle: non-tender, bilateral ankle: normal inspection, normal range of motion, no evidence of injury Foot Exam: right foot: soft tissue tenderness (Right foot dorsal right aspect), left foot: non-tender, bilateral foot: normal inspection, normal range of motion, no evidence of injury Neuro/Tendon Exam: normal sensation, normal motor functions, normal tendon functions, responds to pain, no evidence tendon injury Mental Status Exam: alert, oriented x 3 Skin Exam: normal color, warm, dry SpO2 Interpretation: normal SpO2: 99 O2 Delivery: Room Air - Course Nursing assessment & vital signs reviewed: Yes Ordered Tests: Active Orders 24 hr Category Date Time Status ANKLE (3 VIEWS) Stat Exams 11/06/22 14:29 Taken FOOT (MINIMUM 3 VIEWS) Stat Exams 11/06/22 14:29 Taken - Progress Progress: improved, pain not gone completely Progress Note: 11/06/22 15:12 The radiologist report was reviewed by me. I sent the x-ray studies to radiology because this patient has had multiple surgeries of the ankle and foot on the right side. The report show that there are no acute fractures or dislocations of the right ankle or right foot. This patient has medical issue that is of low complexity. The work-up ordered was based on review of the patient's past medical history, medications that she has been taking, history of present illness and findings on physical examination. The radiologist report/impressions were reviewed by me. The plan is for her to receive the Percocet 10/325 here in the emergency department. She did take a [place] earlier this morning. She is also taking ibuprofen. There is no evidence of cellulitis or DVT in this patient. She did not sustain any type of traumatic injury or fall. Patient is to continue her medication as prescribed and to follow-up with her orthopedic or podiatric surgeon for further evaluation and management. Counseled pt/family regarding: diagnosis, need for follow-up, rad results Medical Desision Making - Discussion of managment Reviewed:: Test results Agreed on:: Treatment plan, need for follow-up - Diagnostic Testing Diagnostic test were ordered, analyzed, and reviewed by me: Yes Radiological Interpretation: Reviewed by me, Teleradiologist Report - Risk of complications Low Risk: Low risk of morbidity from additional dx testing or treatment - Departure Departure Disposition: Home Clinical Impression: Right foot pain, Right ankle pain Condition: Stable Critical Care Time: No Referrals: HARRIETT FENTON MD [Primary Care Provider] - Follow up/PCP as directed Additional Instructions: Ice pack to area 2-3 times a day for the next 48 hours. Keep your right lower extremity elevated above the level of your heart. Continue your Tylenol and ibuprofen medication. Call your orthopedic/podiatric surgeon on 11/08/2022 for further evaluation management.
[2022-11-06] MEDS ORDERED: OXYCODONE-ACETAMINOPHEN 10-325 PO STA (15:17)
[2022-11-06] MEDS ORDERED: OXYCODONE-ACETAMINOPHEN 10-325 ONE (15:19)
[2022-11-06 15:28] VITALS: PULSE 84; O2SAT 98
--- NOTE | 2022-11-06 20:18 | XRAY ---
Indication: Pain and swelling. No known injury. Comparison: None 3 nonweightbearing views right foot demonstrates osteopenia and tiny navicular accessory ossicle. No other bony, articular, or soft tissue abnormalities. Comment: Preliminary interpretation made by [facility]. No critical discrepancy.
--- NOTE | 2022-11-06 20:18 | XRAY ---
Indication: Pain and swelling. No known injury. Comparison: None 3 view right ankle demonstrates osteopenia and mild soft tissue swelling. No other bony, articular, or soft tissue abnormalities. Comment: Preliminary interpretation made by C. No critical discrepancy.
== END 2022-11-06 15:28 | disposition home or self-care (01) ==
LOC: ED 14:14
DX: M25.571 Pain in right ankle and joints of right foot (principal); M79.671 Pain in right foot; E78.5 Hyperlipidemia, unspecified; I10 Essential (primary) hypertension; Z79.891 Long term (current) use of opiate analgesic; Z79.899 Other long term (current) drug therapy; Z72.0 Tobacco use
CPT/HCPCS: 73610; 73630; 99283; A9270-GY